=== PATIENT | female | born 1990 | race Caucasian/White ===

== ENCOUNTER 2024-03-27 14:30 | Emergency (ER) | payer MEDICAID, SELFPAY ==
--- NOTE | 2024-03-27 14:33 | ECG_ITS ---
[facility] Test Date: 2024-03-27 Pat Name: PAM VELAZQUEZ Department: Room: - Gender: Female Forensic Dna Analyst: : 1990 Requested By: LEOLA AGUILERA Order Number: [id number] Reading MD: LORRIE GUPTA Measurements Intervals [place] Rate: 100 P: 34 WI: 146 QRS: 9 QRSD: 84 T: 90 QT: 306 QTc: 363 Interpretive Statements 1120 Sinus tachycardia Low voltage across precordium Electronically Signed On 03-27-2024 19:15:22 EDT by LORRIE GUPTA
--- NOTE | 2024-03-27 14:35 | ED.GENADUL1 ---
HPI HPI - General Adult General Chief complaint: Psychiatric Symptoms Stated complaint: PSYCH SYMPTOMS Time Seen by Provider: 03/27/24 14:33 Source: patient and EMR Mode of arrival: ambulance History of Present Illness HPI narrative: Patient is a 33-year-old female who presents to the emergency department for psych evaluation from a local half-way where she is rehabbing after a left leg surgery 1 month ago. Patient has a history of bipolar depression. Staff reported that the patient was agitated, cussing and yelling at staff. She apparently punched herself in the head and in the leg, and when staff questioned her, she stated that she was in a lot of pain. She had surgery for reconstruction to her left knee 1 month ago in [place], she is no longer receiving Percocet and was told she could not have any more Percocet by the physician at the half-way. On arrival to the ER, patient is tearful but cooperative and answers all questions. She denies suicidal or homicidal ideation. She states she has a history of cutting in the past. No recent suicide attempt or overdose. She has no other focal medical complaints or major medical problems other than asthma. She states she does not have anything to take when her anxiety gets bad. Related Data Previous Rx's ?Medication ?Instructions ?Recorded ciprofloxacin HCl 500 mg tablet 500 mg PO BID #6 tabs 03/27/24 (Cipro) Allergies Allergy/AdvReac Type Severity Reaction Status Date / Time amoxicillin Allergy rash Verified 03/27/24 14:35 clindamycin Allergy Rash Verified 03/27/24 14:35 Penicillins Allergy Rash Verified 03/27/24 14:35 vancomycin Allergy Rash Verified 03/27/24 14:35 Opioid HPI Opioid Management Most Recent Opioid Data: Ur Phencyclidine Scrn Negative (NEGATIVE) 03/27/24 14:40 Review of Systems ROS Constitutional Denies: fever or chills Ears, nose, mouth, and throat Denies: throat pain or nasal congestion Cardiovascular Denies: chest pain Respiratory Denies: shortness of breath or cough Gastrointestinal Denies: nausea or vomiting Musculoskeletal Reports: extremity pain; Denies: back pain or neck pain Integumentary/Breast Denies: rash Neurological Denies: headache, numbness in extremities or weakness in extremities Endocrine Denies: excessive urination Hematologic/Lymphatic Denies: easy bruising or easy bleeding Exam Narrative Exam Narrative: Gen.: Awake, alert, in no distress Head: Normocephalic, atraumatic ENT: Moist mucous membranes Respiratory: No respiratory distress Extremities: Moves extremities equally, no injuries noted; well healed surgical incision to the left leg Psych: Normal mood and affect Neuro: No focal neuro deficit Skin: Warm, dry, intact Constitutional Vital Signs, click to edit/add: Last Vital Signs Temp 98.6 F 03/27/24 14:38 Pulse 98 H 03/27/24 15:28 Resp 18 03/27/24 14:38 BP 145/91 H 03/27/24 14:38 Pulse Ox 98 03/27/24 14:38 O2 Del Method Room Air 03/27/24 14:38 Course Vital Signs Vital signs: Vital Signs Temperature 98.6 F 03/27/24 14:38 Pulse Rate 117 H 03/27/24 14:38 Respiratory Rate 18 03/27/24 14:38 Blood Pressure 145/91 H 03/27/24 14:38 Pulse Oximetry 98 03/27/24 14:38 Oxygen Delivery Method Room Air 03/27/24 14:38 Temperature 98.6 F 03/27/24 14:38 Pulse Rate 98 H 03/27/24 15:28 Respiratory Rate 18 03/27/24 14:38 Blood Pressure 145/91 H 03/27/24 14:38 Pulse Oximetry 98 03/27/24 14:38 Oxygen Delivery Method Room Air 03/27/24 14:38 Medical Decision Making MDM Narrative Medical decision making narrative: Patient is calm, cooperative in the ER. She was given low-dose Ativan for her anxiety on arrival and she is relaxed with stable vital signs in the ER. Laboratory studies reviewed and noted, she is a contaminated urine specimen will be placed on Cipro for 3 days, she was medically clear for psychiatric evaluation and was safety planned by violence counseling services. She has no suicidal, homicidal ideation in the ER. She is not agitated or combative. The patient did request to have her boyfriend drive her back to [facility], I discussed this with the facility and they stated that the patient's boyfriend cannot drive her back because he has limited visitation and the patient's guardian has instructed them not to let her have any extra contact. The patient's boyfriend does not have a restraining order. The patient is not under a pink slip hold or psychiatric hold at this time. She is alert and oriented, cooperative with staff. We contacted the patient's guardian who will apparently come pick the patient up and take her back to her facility. SUPERVISED APC VISIT, PHYSICIAN ATTESTATION: Based on the medical record the care appears appropriate. ? Medical Records Medical records reviewed: Yes I reviewed the patient's medical records Lab Data Lab results reviewed: Yes I reviewed the patient's lab results Labs: Lab Results 03/27/24 03/27/24 Range/Units 14:40 14:42 WBC 12.1 H (4.0-11.0) 10^3/uL RBC 5.43 H (4.20-5.40) 10^6/uL Hgb 14.0 (12.0-16.0) g/dL Hct 44.1 (36.0-48.0) % MCV 81.2 (81.0-99.0) fL MCH 25.8 L (26.7-34.0) pg MCHC 31.7 (29.9-35.2) g/dL RDW 15.3 H (11.0-15.0) % Plt Count 340 (150-450) 10^3/uL MPV 9.4 L (9.5-13.5) fL Neut % (Auto) 75.8 H (43.0-75.0) % Lymph % (Auto) 13.7 L (20.5-60.0) % [place]irie % (Auto) 5.6 (1.7-12.0) % Eos % (Auto) 4.0 (0.9-7.0) % Baso % (Auto) 0.7 (0.2-2.0) % Neut # (Auto) 9.2 H (1.4-6.5) 10^3/uL Lymph # (Auto) 1.7 (1.2-3.8) 10^3/uL [place] # (Auto) 0.7 (0.3-0.8) 10^3/uL Eos # (Auto) 0.5 (0.0-0.7) 10^3/uL Baso # (Auto) 0.1 (0.0-0.1) 10^3/uL Abs Immat Gran (auto) 0.02 (0.00-0.03) 10^3/uL Imm/Tot Granulo (auto) 0.2 (0.0-0.5) % Sodium 136 (136-145) mmol/L Potassium 4.1 (3.5-5.1) mmol/L Chloride 100 (98-107) mmol/L Carbon Dioxide 30.6 (21.0-32.0) mmol/L Anion Gap 9.5 BUN 10.0 (7.0-18.0) mg/dL Creatinine 0.84 (0.55-1.02) mg/dL Est GFR ( Amer) >60 (>=60) Est GFR (Non-Af Amer) >60 (>=60) BUN/Creatinine Ratio 11.9 Glucose 113 H (74-106) mg/dL Calcium 9.2 (8.5-10.1) mg/dL Total Bilirubin 0.6 (0.2-1.0) mg/dL AST 32 (15-37) U/L ALT 56 (14-59) U/L Alkaline Phosphatase 159 H (46-116) U/L Total Protein 7.5 (6.4-8.2) g/dL Albumin 3.5 (3.4-5.0) g/dL Globulin 4.0 g/dL Albumin/Globulin Ratio 0.9 Serum HCG, Qual Negative (NEGATIVE) Urine Color Lt. yellow (YELLOW) Urine Clarity Clear (CLEAR) Urine pH 6.0 (5.0-9.0) Ur Specific [place] 1.010 (1.005-1.025) Urine Protein Negative (NEG/TRACE) mg/dL Urine Glucose (UA) Negative (NEGATIVE) mg/dL Urine Ketones Negative (NEGATIVE) mg/dL Urine Occult Blood Trace-i (NEGATIVE) Urine Nitrite Negative (NEGATIVE) Urine Bilirubin Negative (NEGATIVE) Urine Urobilinogen 0.2 (0.2-1.0) EU/dL Ur Leukocyte Esterase Small A (NEGATIVE) Urine RBC 0-2 (0-2) #/HPF Urine WBC 5-10 A (NONE SEEN) #/HPF Ur Squamous Epith Cells Many A (NONE/RARE) #/LPF Urine Crystals None seen (None Seen) #/HPF Urine Bacteria Trace A (NONE SEEN) #/HPF Urine Casts None seen (NONE SEEN) #/LPF Urine Mucus None seen (NONE SEEN) Ur Culture Indicated? Yes Salicylates <2.8 (<=19.9) mg/dL Urine Opiates Screen Negative (NEGATIVE) Ur Buprenorphine Scrn Negative (NEGATIVE) Ur Oxycodone Screen Negative (NEGATIVE) Urine Methadone Screen Negative (NEGATIVE) Acetaminophen <2.0 L (10.0-30.0) ug/mL Ur Barbiturates Screen Negative (NEGATIVE) U Tricyclic Antidepress Negative (NEGATIVE) Ur Phencyclidine Scrn Negative (NEGATIVE) Ur Amphetamines Screen Negative (NEGATIVE) U Methamphetamines Scrn Negative (NEGATIVE) U Benzodiazepines Scrn Negative (NEGATIVE) Urine Cocaine Screen Negative (NEGATIVE) U Cannabinoids Screen Negative (NEGATIVE) Ethanol Quant <3 mg/dL ECG Data Attestation: I personally reviewed and interpreted this ECG as follows: (Sinus tachycardia at a rate of 100, no acute ST elevation or ectopy. EKG reviewed by attending physician) Discharge Plan Discharge Stand Alone Forms: Work/School Release, Portal Instructions Chief Complaint: Psychiatric Symptoms Clinical Impression: Behavior disturbance, UTI (urinary tract infection) Patient Disposition: Home, Self-Care Time of Disposition Decision: 16:06 Condition: Good Prescriptions / Home Meds: New ciprofloxacin HCl [Cipro] 500 mg tablet 500 mg PO BID Qty: 6 0RF Print Language: Kazakh Instructions: Urinary Tract Infection in Women (ED) Referrals: LEOLA AGUILERA [Primary Care Provider] - 1 week
[2024-03-27 14:38] VITALS: BP 145/91; PULSE 117; TEMP 37; O2SAT 98; BMI 36.5
[2024-03-27] MEDS: LORAZEPAM 0.5 MG TABLET PO (14:45)
[2024-03-27 14:53] LABS: Basophils Absolute Auto 0.1 10^3/uL (0.0-0.1); Basophils Percent Auto 0.7 % (0.2-2.0); Eosinophils Absolute Auto 0.5 10^3/uL (0.0-0.7); Hematocrit 44.1 % (36.0-48.0); Immature Granulocytes Abs Auto 0.02 10^3/uL (0.00-0.03); Immature Granulocytes Pct Auto 0.2 % (0.0-0.5); Lymphocytes Absolute Auto 1.7 10^3/uL (1.2-3.8); Lymphocytes Percent Auto 13.7 % (20.5-60.0); Mean Corpuscular HGB Conc 31.7 g/dL (29.9-35.2); Mean Corpuscular Hemoglobin 25.8 pg (26.7-34.0); Mean Corpuscular Volume 81.2 fL (81.0-99.0); Mean Platelet Volume 9.4 fL (9.5-13.5); Monocytes Absolute Auto 0.7 10^3/uL (0.3-0.8); Monocytes Percent Auto 5.6 % (1.7-12.0); Neutrophils Absolute Auto 9.2 10^3/uL (1.4-6.5); Neutrophils Percent Auto 75.8 % (43.0-75.0); Platelet Count 340 10^3/uL (150-450); Red Blood Count 5.43 10^6/uL (4.20-5.40); Red Cell Distribution Width 15.3 % (11.0-15.0); White Blood Count 12.1 10^3/uL (4.0-11.0)
[2024-03-27 14:57] LABS: Bilirubin Urine NEGATIVE (NEGATIVE); Blood Urine TRACE-I (NEGATIVE); Clarity Urine CLEAR (CLEAR); Color Urine LT. YELLOW (YELLOW); Glucose Urine UA NEGATIVE (NEGATIVE); Ketones Urine NEGATIVE (NEGATIVE); Leukocyte Esterase Urine SMALL (NEGATIVE); Nitrite Urine NEGATIVE (NEGATIVE); Protein Urine NEGATIVE (NEG/TRACE); Urobilinogen Urine 0.2 EU/dL (0.2-1.0)
[2024-03-27 14:58] LABS: Urine Microscopic Indicated YES
[2024-03-27 15:06] LABS: Amphetamine Screen Urine NEGATIVE (NEGATIVE); Barbiturates Screen Urine NEGATIVE (NEGATIVE); Benzodiazepines Screen Urine NEGATIVE (NEGATIVE); Buprenorphine Screen Urine NEGATIVE (NEGATIVE); Cannabinoid Screen Urine NEGATIVE (NEGATIVE); Cocaine Screen Urine NEGATIVE (NEGATIVE); Methadone Screen Urine NEGATIVE (NEGATIVE); Methamphetamines Screen Urine NEGATIVE (NEGATIVE); Opiate Screen Urine NEGATIVE (NEGATIVE); Oxycodone Screen Urine NEGATIVE (NEGATIVE); Phencyclidine Screen Urine NEGATIVE (NEGATIVE); Tricyclic Antidepressant Urine NEGATIVE (NEGATIVE)
[2024-03-27 15:08] LABS: Alanine Aminotransferase 56 U/L (14-59); Albumin Globulin Ratio 0.9; Albumin Level 3.5 g/dL (3.4-5.0); Alkaline Phosphatase 159 U/L (46-116); Anion Gap 9.5; Aspartate Amino Transferase 32 U/L (15-37); BUN Creatinine Ratio 11.9; Bilirubin Total 0.6 mg/dL (0.2-1.0); Calcium 9.2 mg/dL (8.5-10.1); Carbon Dioxide 30.6 mmol/L (21.0-32.0); Chloride 100 mmol/L (98-107); Estimated GFR (African America >60 (>=60); Estimated GFR (Non-African Ame >60 (>=60); Glucose 113 mg/dL (74-106); Potassium 4.1 mmol/L (3.5-5.1); Salicylate <2.8 mg/dL (<=19.9); Sodium 136 mmol/L (136-145); Total Protein 7.5 g/dL (6.4-8.2)
[2024-03-27 15:09] LABS: Acetaminophen <2.0 ug/mL (10.0-30.0)
--- NOTE | 2024-03-27 15:09 | SWNOTE1 ---
JULIO CESAR received a call from ED and pt came in from [facility] and was having behaviors and agitation due to getting a new roommate and not getting her percocet. [facility] wanted pt to have a psych eval, but [facility] was not going to do this unless we have safety concerns. SW to reach out to [place]. JULIO CESAR called and spoke with Sil at [facility]. She is aware of pt, but did not know she went to hospital. She voiced pt has been at [facility] for 2 years and she is fpc there. She stated she has had her own room for awhile and is likely agitated since she is getting a roommate now. JULIO CESAR did make Sil aware that pt will likely be dc from the ED and return to [facility]. JULIO CESAR to have our nurse call and speak to the nurse at [facility]. JULIO CESAR called and updated nurse down in ED. Nurse voiced that [facility] is going to complete a safety plan with patient.
[2024-03-27 15:10] LABS: Ethanol <3 mg/dL
[2024-03-27 15:14] LABS: HCG Qualitative NEGATIVE (NEGATIVE); Internal Control Within Normal Limits
[2024-03-27 15:20] LABS: Squamous Epithelial Cell Urine MANY #/LPF (NONE/RARE)
[2024-03-27 15:21] LABS: RBC Urine 0-2 #/HPF (0-2)
[2024-03-27 15:22] LABS: Bacteria Urine TRACE #/HPF (NONE SEEN); Cast Seen? NONE SEEN #/LPF (NONE SEEN); Crystals Seen? None Seen #/HPF (None Seen); Mucus Urine NONE SEEN (NONE SEEN)
[2024-03-27 15:23] LABS: Urine Culture Indicated YES
[2024-03-27 15:28] VITALS: PULSE 98
== END 2024-03-27 16:34 | disposition home or self-care (01) ==
PROVIDERS: Physician Assistant; Emergency Provider Emergency Medicine; PCP Family Medicine
DX: N39.0 Urinary tract infection, site not specified (principal); F31.9 Bipolar disorder, unspecified; Z91.52 Personal history of nonsuicidal self-harm; F91.8 Other conduct disorders
CPT/HCPCS: 36415; 80053; 80179; 80307; 80320; 80329; 81001; 84703; 85025; 87086; 87150; 93005; 99285

== ENCOUNTER 2025-02-05 07:58 | Emergency (ER) | payer MEDICAID, SELFPAY ==
[2025-02-05] VITALS (24 sets, daily range): BP systolic 102–133; BP diastolic 38–85; PULSE 68–86; TEMP 37.2; O2SAT 93–99; BMI 45.8
--- OUTSIDE RECORDS SUMMARY | 2025-02-05 08:09 | XMS_ITS | Encounter Summary ---
Author Organization Address [address] [place] [address] Care Team Providers Care Chaser Tar Name Role Phone (Historcal), No Pcp Primary Care Provider César do Source Comments In the event this information is protected by the Federal Confidentiality of Alcohol and Drug AbusePatient Records regulations: The Federal rules restrict any use of the information to criminally investigate or prosecute any alcohol or drug abuse patient. Encounter Details Date Type Department Care Team (Late st Contact Info) Description 09/05/2024 Patient Msg Neurology [address] [phone] Provider, Wes [facility] Social History Tobacco Use Types Packs/Day Years Used Date Smoking Tobacco: Never Smokeless Tobacco: Never Comments:2nd hand exposure Alcohol Use Standard Drinks/Week Comments Never 0 (1 standard drink = 0.6 oz pur e alcohol) [facility] Utilities Answer Date Recorded In the past 12 months has e electric, gas, oil, or water company threatened to shut off services in your home? No 12/05/2023 PHQ-2 Answer Date Recorded PHQ-2 score 2 08/20/2024 Hunger Vital Sign Answer Date Recorded Within the past 12 months, y ou worried that your food would run out before you got the money to buy more. Never true 12/05/19 24 Within the past 12 months, t he food you bought just didn't last and you didn't have money to get more. Never true 12/05/2023 PRAPARE - Transportation Answer Date Re corded In the past 12 months, has l ack of transportation kept you from medical appointments or from getting medications? No 02/2024 In the past 12 months, has l ack of transportation kept you from meetings, work, or from getting things needed for daily living? No 12/05/2023 Housing Stability Vital Sign Answer Denys e Recorded In the last 12 months, was t here a time when you were not able to pay the mortgage or rent on time? No 12/05/2023 Number of Places Lived in the Last Year Not on f ile 12/05/2023 In the last 12 months, was t here a time when you did not have a steady place to sleep or slept in a snf (including now)? No 12/05/2023 Area Deprivation Index Answer Date Gonzales rded National Score (1-100), lower number is lower ri sk 89 11/01/2023 State Score (1-10), lower number is lower risk 8 11/01/2023 Data from: https://www.neighborhoodatlas.medicine.[facility].edu/. Last address used for calculation [address] 11/01/2023 Comments No Sex and Gender Information Value Date Recorded Sex Assigned at Female 08/22/2024 10:44 AM EST Legal Sex Female 10:36 AM EDT Gender Identity Female 08/22/2024 10:44 AM EST Sexual Orientation Not on file documented as of this encounter Functional Status * Are you deaf or do you have serious difficulty hearing? Answer Date of Assessment Author No 12/06/2023 11:24 AM Maty Reyes RN * Are you blind or do you have serious difficulty seeing, even when wearing glasses? Answer Date of Assessment Author No 12/06/2023 11:24 AM Maty Reyes RN * Do you have serious difficulty walking or climbing stairs? Answer Date of Assessment Author Yes 12/06/2023 11:24 AM Maty Reyes, WU * Do you have difficulty dressing or bathing? Answer Date of Assessment Author No 12/06/2023 11:24 AM Maty Reyes RN * Because of a physical, mental, or emotional condition, do you have difficulty doing errands alone such as visiting a doctor's office or shopping? Answer Date of Assessment Author No 12/06/2023 11:24 AM Maty Reyes RN documented as of this encounter Mental Status * Because of a physical, mental, or emotional condition, do you have serious difficulty concentrating, remembering, or making decisions? Answer Entry Date Author No 12/06/2023 11:24 AM Maty Reyes RN documented in this encounter Plan of Treatment Upcoming Encounters Date Type Department Care Team (Late st Contact Info) Description 06/19/2025 8:30 AM EST Office Visit [facility] [address] [address] [place] [address] Shantell Vinson [facility] [address] [place] [address] EDS 06/19/2025 9:00 AM EST Office Visit [facility] [address] [place] [address] Keara Hernandez MD [address] [place] [address] EDS documented as of this encounter Visit Diagnoses Not on filedocumented in this encounter Care Teams Chaser Tar Relationship Specialty Start Date End Date (Historcal), No Pcp PCP - General 01/20/15 documented as of this encounter
--- OUTSIDE RECORDS SUMMARY | 2025-02-05 08:09 | XMS_ITS | Encounter Summary ---
Author Organization [facility] Address [address] [place] [id number] Care Team Providers Care Senior Compliance Officer Name Role Phone (Historcal), No Pcp Primary Care Provider César do Source Comments In the event this information is protected by the Federal Confidentiality of Alcohol and Drug AbusePatient Records regulations: The Federal rules restrict any use of the information to criminally investigate or prosecute any alcohol or drug abuse patient.[facility] Encounter Details Date Type Department Care Team (Late st Contact Info) Description 10/03/2023 Patient Msg [facility] [address] [place] [id number] Provider, [facility] Appointment Reminderand Bowel Prep Instructions Social History Tobacco Use Types Packs/Day Years Used Date Smoking Tobacco: Never Smokeless Tobacco: Never Comments:2nd hand exposure Alcohol Use Standard Drinks/Week Comments Never 0 (1 standard drink = 0.6 oz pur e alcohol) PHQ-2 Answer Date Recorded PHQ-2 score 2 10/04/2023 Area Deprivation Index Answer Date Gonzales rded National Score (1-100), lower number is lower ri sk 89 06/15/2023 State Score (1-10), lower number is lower risk 8 06/15/2023 Data from: https://www.neigh borhoodatlas.medicine.[facility].edu/. Last address used for calculation [address] [place] [address] 06/15/2023 Comments Unknown Sex and Gender Information Value Date Recorded Sex Assigned at Female 08/22/2024 10:44 AM EST Legal Sex Female 10:36 AM EDT Gender Identity Female 08/22/2024 10:44 AM EST Sexual Orientation Not on file documented as of this encounter Plan of Treatment Upcoming Encounters Date Type Department Care Team (Late st Contact Info) Description 06/19/2025 8:30 AM EST Office Visit [facility] [place] [place] [address] [place] [address] Shantell Vinson [facility] [address] [phone] EDS 06/19/2025 9:00 AM EST Office Visit [facility] [place] [address] [place] [address] Keara Hernandez MD [address] [place] [address] EDS documented as of this encounter Visit Diagnoses Not on filedocumented in this encounter Care Teams Senior Compliance Officer Relationship Specialty Start Date End Date (Historcal), No Pcp PCP - General 01/20/15 documented as of this encounter
--- OUTSIDE RECORDS SUMMARY | 2025-02-05 08:09 | XMS_ITS | Clinical Summary ---
Author Organization [facility] Address [address] [place] [id number] Care Team Providers Care Salesperson Stereo Equipment Name Role Phone (Historcal), No Pcp Primary Care Provider Unavai lable Allergies Active Allergy Reactions Criticality Noted Date Comments Amoxicillin Rash 09/20/2023 Azithromycin Rash,Swelling Medium 04/01/2017 Clindamycin Rash 09/20/2023 Meclofenamate Sodium Rash Low 04/16/2020 Penicillins Rash 06/29/2023 Vancomycin Rash 06/29/2023 Medications ARIPiprazole (ABILIFY) 10 mg tablet Take 1 tablet by mouth once daily. 3 Active albuterol sulfate 90 mcg/actuation aebs Inhale 1 Puff as instructed once daily as needed for wheezing/shortne ss of breath. 3 Active cloNIDine HCl (CATAPRES) 0.1 mg tablet Take 1 tablet by mouth two times a day. 3 Active Additional Information Patient taking differently: 0.2 mgORAL 2 TIMES DAILY, Reason: Dosage Adjustment, Reported on 11/13/2024 ferrous sulfate (IRON) 325 mg (65 mg iron) tablet Take 1 tablet by mouth once daily. 3 Active venlafaxine XR (EFFEXOR XR) 225 mg tablet Take 1 tablet by mouth once daily. 3 Active hydrOXYzine HCl (ATARAX) 25 mg tablet Take 1 tablet by mouth three times a day as needed. 3 Active melatonin 10 mg tab Take 1 tablet by mouth daily at bedtime. 3 Active buPROPion SR (WELLBUTRIN SR) 100 mg 12 hr tablet Take 1 tablet by mouth two times a day. 3 Active montelukast (SINGULAIR) 10 mg tablet Take 1 tablet by mouth daily at bedtime. 3 Active ubrogepant (UBRELVY) 100 mg tablet Take 1 tablet by mouth as needed. 3 Active acetaminophen (TYLENOL) 325 mg tablet Take 2 tablets every 6 hours by oral route. Active Cholecalciferol , Vitamin D3, 50 mcg (2,000 unit) cap Daily [address] (PROTONIX) 40 mg tablet Take 1 tablet by mouth two times a day before meals at 6 am and 4 pm. 60 tablet 4 Active ARIPiprazole (ABILIFY) 2 mg tablet Take 2 mg by mouth once daily. Active traZODone (DESYREL) 150 mg tablet Take 150 mg by mouth daily at bedtime. 1/2 tab at hs Active sirolimus (RAPAMUNE) 1 mg tablet Take 1 tablet by mouth once daily. 90 tablet 3 4 06/12/20 25 Active ondansetron HCl (ZOFRAN ORAL) Take by mouth. 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 12/04/2023 Major depressive disorder in partial remission 0 12/04/2023 Intractable migraine 12/04/2023 Bipolar 1 disorder 12/04/2023 ADHD 12/04/2023 Mild intermittent asthma without complication Chronic pain of left knee 12/04/2023 Gastric polyp 12/04/2023 S/P endoscopy 12/04/2023 Class 3 severe obesity due t o excess calories without serious comorbidity with body mass index (BMI) of 45.0 to 49.9 in adult 12/04/2023 Encounters Date Type Department Care Team Description 11/19/2024 Patient Msg Neurology [address] [place] [address] Provider, [facility] Know Your Triggers, Own Your Day: Taking Control of Migraine 11/13/2024 8:45 AM EDT Office Visit Neurology [address] [place] [address] Will Downey, CERTIFIED HYPERBARIC TECHNOLOGIST.REVERBERATORY SKIMMER Intractable chronic migraine without aura and without status migrainosus (Primary Dx) 11/11/2024 Travel 11/07/2024 Patient Msg [facility] [address] [phone] Provider, Wes GENETICS from Last 3 Months Immunizations Immunization Administration Dates Next Due influenza (IIV4) vaccine, ag e 6 mo - 64 yr, quadrivalent, PF (AFLURIA, FLUARIX, FLULAVAL, FLUZONE) 05/18/2020,08/23/2016 Family History Medical History Relation Comments Lung Cancer Maternal Grandfather +TOB Headache Mother Autism Son Aneurysm No Family History Brain Cancer No Family History Relation Status Comments Father Alive Maternal Grandfather Maternal Grandmother Alive Mother Alive Paternal Grandmother Alive Son Alive Social History Tobacco Use Types Packs/Day Years Used Date Smoking Tobacco: Never Smokeless Tobacco: Never Tobacco Cessation:Counseling Given: Not Answered Comments:2nd hand exposure Alcohol Use Standard Drinks/Week Comments Never 0 (1 standard drink = 0.6 oz pur e alcohol) [facility] Utilities Answer Date Recorded In the past 12 months has th e electric, gas, oil, or water company threatened to shut off services in your home? No 12/05/2023 PHQ-2 Answer Date Recorded PHQ-2 score 1 11/12/2024 Hunger Vital Sign Answer Date Recorded Within [...] place to sleep or slept in a fdc (including now)? No 12/05/2023 Area Deprivation Index Answer Date Gonzales rded National Score (1-100), lower number is lower ri sk 89 11/01/2023 State Score (1-10), lower number is lower risk 8 11/01/2023 Data from: https://www.neighborhoodatlas.medicine.[facility].edu/. Last address used for calculation [address] 11/01/2023 Comments No Sex and Gender Information Value Date Recorded Sex Assigned at Female 08/22/2024 10:44 AM EST Legal Sex Female 10:36 AM EDT Gender Identity Female 08/22/2024 10:44 AM EST Sexual Orientation Not on file Last Filed Vital Signs Vital Sign Reading Time Taken Comments Blood Pressure 116/46 11/13/2024 9:01 AM EDT Pulse 85 11/13/2024 9:01 AM EDT Temperature 36.8 C (98.2 F) 02/29/2024 10:22 AM EDT Respiratory Rate 18 02/29/2024 10:22 AM EDT Oxygen Saturation 95% 02/29/2024 10:22 AM EDT Inhaled Oxygen Concentration - - Weight 137.1 kg (302 lb 4 oz) 08/22/2024 11:28 A M EST Height 173.8 cm (5' 8.43 ) 02/05/2024 1:17 PM ED T Body Mass Index 45.39 02/05/2024 1:17 PM EDT Plan of Treatment Upcoming Encounters Date Type Department Care Team (Late st Contact Info) Description 06/19/2025 8:30 AM EST Office Visit [facility] [address] [phone] Shantell Vinson, [facility] [address] [phone] EDS 06/19/2025 9:00 AM EST Office Visit [facility] [address] [place] [address] Keara Hernandez MD [address] [place], [place] [phone] EDS Health Maintenance Due Date Last Done Comments Cervical Cancer Screening 2002 Annual PCP Team Chronic Dise ase Visit 2009 Anxiety Screening 2009 HIV Screening 2009 DTaP,Tdap,Td Vaccine (1 - Tdap) 2010 Hepatitis B Vaccine (1 of 3 - 19+ 3-dose series) 2010 Shingrix Vaccine (1 of 2) 2010 Covid-19 Vaccine (6 - 2023-2 5 season) 2024 07/12/2023, 01/10/2023, 03/15/2022, Additional history exists Pneumococcal Vaccine (2 of 2 - PCV) 04/27/2024 04/27/2023 Influenza Vaccine (#1) 2025 , 06/01/2022, 11/16/2021, Additional history exists Hepatitis C Screening Completed 11/11/2020, 021 Insurance MEDICAID [place] Advance Directives * Full Code (Latest Code Status on File) Date Activated Date Inactivated Comments 12/04/2023 8:45 PM 12/06/2023 3:01 PM Question Answer Comments Full Code Order Discussed With: Discussion Not M edically Appropriate Care Teams Salesperson Stereo Equipment Relationship Specialty Start Date End Date (Historcal), No Pcp PCP - General 01/20/15
--- OUTSIDE RECORDS SUMMARY | 2025-02-05 08:09 | XMS_ITS | Encounter Summary ---
Author Organization [employer] Address [id number] [address] [place] [address] Care Team Providers Care Server Manager Name Role Phone Rinku Kennedy DO Primary Care Provider +1 [phone] Encounter Details Date Type Department Care Team (Late st Contact Info) Description 05/07/2023 Orders Only [facility] Internal Medicine - Family Medicine [address] [place] [address] External, Scanning Provider Social History Tobacco Use Types Packs/Day Years Used Date Smoking Tobacco: Never Smokeless Tobacco: Never Alcohol Use Standard Drinks/Week Comments Yes 0 (1 standard drink = 0.6 oz pur e alcohol) once in a while Childcare Answer Date Recorded Childcare Unknown 01/08/2019 Employment Answer Date Recorded Employment Unknown 01/08/2019 Hunger Screening Answer Date Recorded Within the past 12 months we worried whether our food would run out before we got money to buy more. Never True 05/04/2023 Within the past 12 months th e food we bought just didn't last and we didn't have money to get more. Never True 05/04/2023 Purpose - Life Answer Date Recorded Purpose and direction in life Unknown Comments Unknown Sex and Gender Information Value Date Recorded Sex Assigned at Not on file Legal Sex Female 3:47 AM EDT Gender Identity Not on file Sexual Orientation Not on file documented as of this encounter Plan of Treatment Not on file documented as of this encounter Procedures Procedure Name Priority Date/Time Associated Diagnosis Comments HM COLONOSCOPY Routine 05/07/2023 10:51 AM EDT documented in this encounter Results * HM COLONOSCOPY (05/07/2023 10:51 AM EDT) us Scanning Provider External HEALTH MAINTENANCE Fi nal Result MANUALLY TRANSCRIBED RESULTS documented in this encounter Visit Diagnoses Not on filedocumented in this encounter Care Teams Server Manager Relationship Specialty Start Date End Date iRnku Kennedy DO [address] [facility], [place] [address] PCP - General Family Medicine 04/27/24 documented as of this encounter
--- OUTSIDE RECORDS SUMMARY | 2025-02-05 08:09 | XMS_ITS | Encounter Summary ---
Author Organization [facility] Address [address] [place] [address] Care Team Providers Care Cigarette Book Maker Name Role Phone (Historcal), No Pcp Primary Care Provider César do Source Comments In the event this information is protected by the Federal Confidentiality of Alcohol and Drug AbusePatient Records regulations: The Federal rules restrict any use of the information to criminally investigate or prosecute any alcohol or drug abuse patient.[facility] Encounter Details Date Type Department Care Team (Late st Contact Info) Description 09/25/2023 Patient Msg Gastroenterology [address] [phone] Karuna Cash MD [address] [place] [address] biopsies all benign Social History Tobacco Use Types Packs/Day Years Used Date Smoking Tobacco: Never Smokeless Tobacco: Never Comments:2nd hand exposure Alcohol Use Standard Drinks/Week Comments Never 0 (1 standard drink = 0.6 oz pur e alcohol) PHQ-2 Answer Date Recorded PHQ-2 score 2 06/28/2023 Area Deprivation Index Answer Date Gonzales rded National Score (1-100), lower number is lower ri sk 89 06/15/2023 State Score (1-10), lower number is lower risk 8 06/15/2023 Data from: https://www.neigh borhoodatlas.medicine.[facility].edu/. Last address used for calculation [address] 06/15/2023 Comments Unknown Sex and Gender Information Value Date Recorded Sex Assigned at Female 08/22/2024 10:44 AM EST Legal Sex Female 10:36 AM EDT Gender Identity Female 08/22/2024 10:44 AM EST Sexual Orientation Not on file documented as of this encounter Plan of Treatment Upcoming Encounters Date Type Department Care Team (Late st Contact Info) Description 06/19/2025 8:30 AM EST Office Visit [facility] TAWANDA [facility] [address] [phone] Shantell Vinson, PRANAY [address] [phone] EDS 06/19/2025 9:00 AM EST Office Visit [facility] [address] [place] [address] Keara Hernandez MD [address] [phone] EDS documented as of this encounter Visit Diagnoses Not on filedocumented in this encounter Care Teams Cigarette Book Maker Relationship Specialty Start Date End Date (Historcal), No Pcp PCP - General 01/20/15 documented as of this encounter
--- OUTSIDE RECORDS SUMMARY | 2025-02-05 08:09 | XMS_ITS | Encounter Summary ---
Author Organization [facility] Address [address] [place], [place] [id number] Care Team Providers Care Certified Phlebotomy Technician Name Role Phone (Historcal), No Pcp Primary Care Provider César do Source Comments In the event this information is protected by the Federal Confidentiality of Alcohol and Drug AbusePatient Records regulations: The Federal rules restrict any use of the information to criminally investigate or prosecute any alcohol or drug abuse patient.[facility] Encounter Details Date Type Department Care Team (Late st Contact Info) Description 06/05/2024 Get Medical Advice Gastroenterology [address] [phone] Karuna Cash MD [address] [place] [address] New order for medical genetics Social History Tobacco Use Types Packs/Day Years Used Date Smoking Tobacco: Never Smokeless Tobacco: Never Comments:2nd hand exposure Alcohol Use Standard Drinks/Week Comments Never 0 (1 standard drink = 0.6 oz pur e alcohol) [facility] Utilities Answer Date Recorded In the past 12 months has e electric, gas, oil, or water company threatened to shut off services in your home? No 12/05/2023 PHQ-2 Answer Date Recorded PHQ-2 score 2 10/31/2023 Hunger Vital Sign Answer Date Recorded Within [...] place to sleep or slept in a jail (including now)? No 12/05/2023 Area Deprivation Index Answer Date Gonzales rded National Score (1-100), lower number is lower ri sk 89 11/01/2023 State Score (1-10), lower number is lower risk 8 11/01/2023 Data from: https://www.neighborhoodatlas.medicine.[facility].edu/. Last address used for calculation [address] [...] Assessment Author Yes 12/06/2023 11:24 AM Maty Reyes RN * Do you have difficulty dressing or [...] Description 06/19/2025 8:30 AM EST Office Visit [facility] [address] [place] [address] Shantell Vinson, [facility] [address] [place] [address] EDS 06/19/2025 9:00 AM EST Office Visit [facility] [address] [place] [address] Keara Hernandez MD [address] [place] [address] EDS documented as of this encounter Visit Diagnoses Not on filedocumented in this encounter Care Teams Certified Phlebotomy Technician Relationship Specialty Start Date End Date (Historcal), No Pcp PCP - General 01/20/15 documented as of this encounter
--- OUTSIDE RECORDS SUMMARY | 2025-02-05 08:09 | XMS_ITS | Encounter Summary ---
Author Organization [facility] Address [address] [place] [address] Care Team Providers Care Adult Probation Officer Name Role Phone (Historcal), No Pcp Primary Care Provider César do Source Comments In the event this information is protected by the Federal Confidentiality of Alcohol and Drug AbusePatient Records regulations: The Federal rules restrict any use of the information to criminally investigate or prosecute any alcohol or drug abuse patient.[facility] Encounter Details Date Type Department Care Team (Late st Contact Info) Description 02/26/2024 Patient Msg Neurology [address] [phone] Provider, [facility] Botox Outreach Social History Tobacco Use Types Packs/Day Years Used Date Smoking Tobacco: Never Smokeless Tobacco: Never Comments:2nd hand exposure Alcohol Use Standard Drinks/Week Comments Never 0 (1 standard drink = 0.6 oz pur e alcohol) [facility] Utilities Answer Date Recorded In the past [...] place to sleep or slept in a halfway (including now)? No 12/05/2023 Area Deprivation Index Answer Date Gonzales rded National Score (1-100), lower number is lower ri sk 89 11/01/2023 State Score (1-10), lower number is lower risk 8 11/01/2023 Data from: https://www.neighborhoodatlas.medicine.[facility].edu/. Last address used for calculation [address] [...] Assessment Author No 12/06/2023 11:24 AM Maty Reyes, WU * Because of a physical, mental, or [...] Description 06/19/2025 8:30 AM EST Office Visit [facility] TAWANDA ADAMS [address] [phone] Shantell Vinson [facility] [address] [phone] EDS 06/19/2025 9:00 AM EST Office Visit [facility] AD[facility] [address] [place] [address] Keara Hernandez MD [address] [place] [address] EDS documented as of this encounter Visit Diagnoses Not on filedocumented in this encounter Care Teams Adult Probation Officer Relationship Specialty Start Date End Date (Historcal), No Pcp PCP - General 01/20/15 documented as of this encounter
--- OUTSIDE RECORDS SUMMARY | 2025-02-05 08:09 | XMS_ITS | Encounter Summary ---
Author Organization [employer] Address [id number] [address] [place] [address] Care Team Providers Care Senior Controller Name Role Phone Rinku Kennedy DO Primary Care Provider [phone] [phone] Encounter Details Date Type Department Care Team (Late st Contact Info) Description 05/02/2023 Orders Only [facility] Internal Medicine - Family Medicine [address] [place] [address] External, Scanning Provider Social History Tobacco Use [...] Procedure Name Priority Date/Time Associated Diagnosis Comments POCT , URINE (NUCG) Routine 05/02/2023 3:12 PM EDT documented in this encounter Results * POCT , urine (05/02/2023 3:12 PM EDT) us Scanning Provider External POINT OF CARE TEST OR DERABLES Final Result MANUALLY TRANSCRIBED RESULTS documented in this encounter Visit Diagnoses Not on filedocumented in this encounter Care Teams Senior Controller Relationship Specialty Start Date End Date Rinku Kennedy DO [address], [place] [address] PCP - General Family Medicine 04/27/24 documented as of this encounter
--- OUTSIDE RECORDS SUMMARY | 2025-02-05 08:09 | XMS_ITS | Encounter Summary ---
Author Organization [facility] Address [address] [place], [place] [phone] Care Team Providers Care Domestic Violence Advocate Name Role Phone (Historcal), No Pcp Primary Care Provider César do Source Comments In the event this information is protected by the Federal Confidentiality of Alcohol and Drug AbusePatient Records regulations: The Federal rules restrict any use of the information to criminally investigate or prosecute any alcohol or drug abuse patient.[facility] Encounter Details Date Type Department Care Team (Late st Contact Info) Description 12/03/2023 Get Medical Advice Gastroenterology [address] [phone] [place] [address] [place] [address] [place], [place] [phone] egd procedure Social History Tobacco Use Types Packs/Day Years [...] place to sleep or slept in a residential (including now)? No 12/05/2023 Area Deprivation Index Answer Date Gonzales rded National Score (1-100), lower number is lower ri sk 89 11/01/2023 State Score (1-10), lower number is lower risk 8 11/01/2023 Data from: https://www.neighborhoodatlas.medicine.[facility].edu/. Last address used for calculation [address] 11/01/2023 Comments Unknown Sex and Gender Information Value Date Recorded Sex Assigned at Female 08/22/2024 10:44 AM EST Legal Sex Female 10:36 AM EDT Gender Identity Female 08/22/2024 10:44 AM EST Sexual Orientation Not on file documented as of this encounter Plan of Treatment Upcoming Encounters Date Type Department Care Team (Late st Contact Info) Description 06/19/2025 8:30 AM EST Office Visit [facility] TAWANDA ADAMS [address] [place] [address] Shantell Vinson, [facility] [address] [place] [address] EDS 06/19/2025 9:00 AM EST Office Visit [facility] [address] [place] [address] Keara Hernandez MD [address] [place] [address] EDS documented as of this encounter Visit Diagnoses Not on filedocumented in this encounter Care Teams Domestic Violence Advocate Relationship Specialty Start Date End Date (Historcal), No Pcp PCP - General 01/20/15 documented as of this encounter
--- OUTSIDE RECORDS SUMMARY | 2025-02-05 08:09 | XMS_ITS | Encounter Summary ---
Author Organization [facility] Address [address] [place] [address] Care Team Providers Care Presiding Steward Name Role Phone (Historcal), No Pcp Primary Care Provider César do Source Comments In the event this information is protected by the Federal Confidentiality of Alcohol and Drug AbusePatient Records regulations: The Federal rules restrict any use of the information to criminally investigate or prosecute any alcohol or drug abuse patient.[facility] Encounter Details Date Type Department Care Team (Late st Contact Info) Description 06/19/2024 Get Medical Advice Gastroenterology [address] [phone] Karuna Cash MD [address] [place] [address] New order for genetic testing Social History Tobacco Use Types Packs/Day Years Used Date Smoking Tobacco: Never Smokeless Tobacco: Never Comments:2nd hand exposure Alcohol Use Standard Drinks/Week Comments Never 0 (1 standard drink = 0.6 oz pur e alcohol) [facility] Utilities Answer Date Recorded In the past [...] risk 8 11/01/2023 Data from: https://www.neighborhoodatlas.medicine.[facility].edu/. Last address used for calculation [address] [...] Maty Reyes RN documented in this encounter Miscellaneous Notes * Telephone Encounter - Sandra Dempsey Ma - 06/19/2024 3:50 PM EST Patient called and and needs a new order placed for Genetic Testing / the in the system has . Sandra Dempsey Ma documented in this encounter Plan of Treatment Upcoming Encounters Date Type Department Care Team (Late st Contact Info) Description 06/19/2025 8:30 AM EST Office Visit ASHANTI ADAMS [address] [place] [address] Shantell Vinson, [facility] [address] [place] [address] EDS 06/19/2025 9:00 AM EST Office Visit ASHANTI ADAMS [address] [place] [address] Keara Hernandez MD [address] [place] [address] EDS documented as of this encounter Visit Diagnoses Not on filedocumented in this encounter Care Teams Presiding Steward Relationship Specialty Start Date End Date (Historcal), No Pcp PCP - General 01/20/15 documented as of this encounter
--- OUTSIDE RECORDS SUMMARY | 2025-02-05 08:09 | XMS_ITS | Encounter Summary ---
Author Organization [facility] Address [address] [place] [address] Care Team Providers Care Filling And Stapling Machine Operator Name Role Phone (Historcal), No Pcp Primary Care Provider César do Source Comments In the event this information is protected by the Federal Confidentiality of Alcohol and Drug AbusePatient Records regulations: The Federal rules restrict any use of the information to criminally investigate or prosecute any alcohol or drug abuse patient.[facility] Encounter Details Date Type Department Care Team (Late st Contact Info) Description 11/19/2024 Patient Msg Neurology [address] [phone] Provider, [facility] Know Your Triggers, Own Your Day: Taking Control of Migraine Social History Tobacco Use Types Packs/Day Years Used Date Smoking Tobacco: Never Smokeless Tobacco: Never Comments:2nd hand exposure Alcohol Use Standard Drinks/Week Comments Never 0 (1 standard drink = 0.6 oz pur e alcohol) [facility] Utilities Answer Date Recorded In the [...] place to sleep or slept in a senior living (including now)? No 12/05/2023 Area Deprivation Index Answer Date Gonzales rded National Score (1-100), lower number is lower ri sk 89 11/01/2023 State Score (1-10), lower number is lower risk 8 11/01/2023 Data from: https://www.neighborhoodatlas.medicine.[facility].edu/. Last address used for calculation [address] [...] of Assessment Author No 12/06/2023 11:24 AM EDT Dubon, Maty, RN * Because of a physical, mental, [...] Description 06/19/2025 8:30 AM EST Office Visit [facility] TAWANDA ADAMS [address] [place] [address] Shantell Vinson [facility] [address] [place] [address] EDS 06/19/2025 9:00 AM EST Office Visit [facility] [address] [place] [address] Keara Hernandez MD [address] [place] [address] EDS documented as of this encounter Visit Diagnoses Not on filedocumented in this encounter Care Teams Filling And Stapling Machine Operator Relationship Specialty Start Date End Date (Historcal), No Pcp PCP - General 01/20/15 documented as of this encounter
--- OUTSIDE RECORDS SUMMARY | 2025-02-05 08:09 | XMS_ITS | Encounter Summary ---
Author [id number] [address] [place] [address] Care Team Providers Care Financial Reporting Analyst Name Role Phone Rinku Kennedy DO Primary Care Provider +1 [phone] Encounter Details Date Type Department Care Team (Late st Contact Info) Description 05/26/2022 Orders Only [facility] Internal Medicine - Family Medicine [address] [place] [phone] External, Scanning Provider Social History Tobacco Use Types Packs/Day Years Used Date Smoking Tobacco: Never Smokeless Tobacco: Never Alcohol Use Standard Drinks/Week Comments Yes 0 (1 standard drink = 0.6 oz pur e alcohol) once in a while Childcare Answer Date Recorded Childcare Unknown 01/08/2019 Employment Answer Date Recorded Employment Unknown 01/08/2019 Purpose - Life Answer Date Recorded Purpose and direction in life Unknown Comments Unknown Sex and Gender Information Value Date Recorded Sex Assigned at Not on file Legal Sex Female 3:47 AM EDT Gender Identity Not on file Sexual Orientation Not on file documented as of this encounter Plan of Treatment Pending Results Name Type Priority Associated Diagnoses Date /Time Multiple labs Lab Routine 04/14/2022 documented as of this encounter Visit Diagnoses Not on filedocumented in this encounter Additional Health Concerns Infection Onset Date Last Indicated Resolved Time COVID-19 Rule-Out 06/30/2022 06/30/2022 06/30/2022 2:30 PM EST documented as of this encounter Care Teams Financial Reporting Analyst Relationship Specialty Start Date End Date Rinku Kennedy DO [address] [place] [address] PCP - General Family Medicine 04/27/24 documented as of this encounter
--- OUTSIDE RECORDS SUMMARY | 2025-02-05 08:09 | XMS_ITS | Encounter Summary ---
Author Organization [facility] Address [address] [place] [address] Care Team Providers Care Head Of Conservation Name Role Phone (Historcal), No Pcp Primary Care Provider César do Source Comments In the event this information is protected by the Federal Confidentiality of Alcohol and Drug AbusePatient Records regulations: The Federal rules restrict any use of the information to criminally investigate or prosecute any alcohol or drug abuse patient.[facility] Encounter Details Date Type Department Care Team (Late st Contact Info) Description 07/16/2024 Patient Msg Neurology [address] [phone] Provider, Wes Botox for 2024 Social History Tobacco Use Types Packs/Day Years Used Date Smoking Tobacco: Never Smokeless Tobacco: Never Comments:2nd hand exposure Alcohol Use Standard Drinks/Week Comments Never 0 (1 standard drink = 0.6 oz pur e alcohol) [facility] Utilities Answer Date Recorded In the past [...] place to sleep or slept in a [place] health care facility (including now)? No 12/05/2023 Area Deprivation Index Answer Date Gonzales rded National Score (1-100), lower number is lower ri sk 89 11/01/2023 State Score (1-10), lower number is lower risk 8 11/01/2023 Data from: https://www.neighborhoodatlas.medicine.[facility].edu/. Last address used for calculation [address] [...] 8:30 AM EST Office Visit VICKI ADAMS [address] [address] [phone] Shantell Vinson [place] [address] [phone] EDS 06/19/2025 9:00 AM EST Office Visit [facility]AMS [address] [place] [address] Keara Hernandez MD [address] [place] [address] EDS documented as of this encounter Visit Diagnoses Not on filedocumented in this encounter Care Teams Head Of Conservation Relationship Specialty Start Date End Date (Historcal), No Pcp PCP - General 01/20/15 documented as of this encounter
--- OUTSIDE RECORDS SUMMARY | 2025-02-05 08:09 | XMS_ITS | Encounter Summary ---
Author Organization [facility] Address [address] [place] [address] Care Team Providers Care License Issuer Name Role Phone (Historcal), No Pcp Primary Care Provider César do Source Comments In the event this information is protected by the Federal Confidentiality of Alcohol and Drug AbusePatient Records regulations: The Federal rules restrict any use of the information to criminally investigate or prosecute any alcohol or drug abuse patient.[facility] Encounter Details Date Type Department Care Team (Late st Contact Info) Description 11/07/2024 Patient [facility] [address] [place] [address] Provider, Leslie GENETICS Social History Tobacco Use Types Packs/Day Years Used Date Smoking Tobacco: Never Smokeless Tobacco: Never Comments:2nd hand exposure Alcohol Use Standard Drinks/Week Comments Never 0 (1 standard drink = 0.6 oz pur e alcohol) [facility] Utilities Answer Date Recorded In the past [...] place to sleep or slept in a long term (including now)? No 12/05/2023 Area Deprivation Index Answer Date Gonzales rded National Score (1-100), lower number is lower ri sk 89 11/01/2023 State Score (1-10), lower number is lower risk 8 11/01/2023 Data from: https://www.neighborhoodatlas.medicine.[facility].edu/. Last address used for calculation [address] [...] Description 06/19/2025 8:30 AM EST Office Visit [facility] TAWANDA ADAMS [address] [place] [address] Shantell Vinson [place] [address] [phone] EDS 06/19/2025 9:00 AM EST Office Visit [facility]ICK[facility]AMS [address] [place] [address] Keara Hernandez MD [address] [place] [address] EDS documented as of this encounter Visit Diagnoses Not on filedocumented in this encounter Care Teams License Issuer Relationship Specialty Start Date End Date (Historcal), No Pcp PCP - General 01/20/15 documented as of this encounter
--- OUTSIDE RECORDS SUMMARY | 2025-02-05 08:09 | XMS_ITS | Encounter Summary ---
Author Organization [facility] Address [address] [place], [place] [id number] Care Team Providers Care Treadle Cut Off Saw Operator Name Role Phone (Historcal), No Pcp Primary Care Provider César do Source Comments In the event this information is protected by the Federal Confidentiality of Alcohol and Drug AbusePatient Records regulations: The Federal rules restrict any use of the information to criminally investigate or prosecute any alcohol or drug abuse patient.[facility] Encounter Details Date Type Department Care Team (Late st Contact Info) Description 01/22/2024 Abstract Colorectal Surgery [address] [phone] Emy Matson, Research Coordinator [address] [place] [id number] Social History Tobacco Use Types Packs/Day Years Used Date Smoking Tobacco: Never Smokeless Tobacco: Never Comments:2nd hand exposure Alcohol Use Standard Drinks/Week Comments Never 0 (1 standard drink = 0.6 oz pur e alcohol) [facility] Utilities Answer Date Recorded In [...] place to sleep or slept in a longterm (including now)? No 12/05/2023 Area Deprivation Index Answer Date Gonzales rded National Score (1-100), lower number is lower ri sk 89 11/01/2023 State Score (1-10), lower number is lower risk 8 11/01/2023 Data from: https://www.neighborhoodatlas.medicine.[facility].edu/. Last address used for calculation [address] 11/01/2023 Comments No Sex and Gender [...] Maty Reyes, WU * Do you have serious difficulty walking [...] 8:30 AM EST Office Visit [facility] [address] [facility] [place] [address] Shantell Vinson, [facility] [address] [place] [address] EDS 06/19/2025 9:00 AM EST Office Visit ASHANTI ADAMS [address] [place] [address] Keara Hernandez MD [address] [place] [address] EDS documented as of this encounter Visit Diagnoses Not on filedocumented in this encounter Care Teams Treadle Cut Off Saw Operator Relationship Specialty Start Date End Date (Historcal), No Pcp PCP - General 01/20/15 documented as of this encounter
--- OUTSIDE RECORDS SUMMARY | 2025-02-05 08:09 | XMS_ITS | Encounter Summary ---
Author Organization [facility] Address [address] [place] [address] Care Team Providers Care Meteorologist In Charge Name Role Phone (Historcal), No Pcp Primary Care Provider César do Source Comments In the event this information is protected by the Federal Confidentiality of Alcohol and Drug AbusePatient Records regulations: The Federal rules restrict any use of the information to criminally investigate or prosecute any alcohol or drug abuse patient.[facility] Encounter Details Date Type Department Care Team (Late st Contact Info) Description 12/03/2023 Patient Msg Radiology [address] [place] [address] Provider, Cc Questionnaire Submission Social History Tobacco Use Types Packs/Day Years Used Date Smoking Tobacco: Never Smokeless Tobacco: Never Comments:2nd hand exposure Alcohol Use Standard Drinks/Week Comments Never 0 (1 standard drink = 0.6 oz pur e alcohol) [facility] Utilities Answer Date Recorded In the [...] is lower risk 8 11/01/2023 Data from: https://www.neighborhoodatlas.medicine.[facility].edu/. Last address used for calculation [address] 11/01/2023 Comments Unknown Sex and Gender [...] 8:30 AM EST Office Visit VICKI ADAMS [address] [place] [address] Shantell Vinson, [facility] [address] [place], [place] [phone] EDS 06/19/2025 9:00 AM EST Office Visit ASHANTI ADAMS [address] [place] [address] Keara Hernandez MD [address] [place] [address] EDS documented as of this encounter Visit Diagnoses Not on filedocumented in this encounter Care Teams Meteorologist In Charge Relationship Specialty Start Date End Date (Historcal), No Pcp PCP - General 01/20/15 documented as of this encounter
--- OUTSIDE RECORDS SUMMARY | 2025-02-05 08:09 | XMS_ITS | Encounter Summary ---
Author Organization [facility] Address [address] [place] [address] Care Team Providers Care Baton Twirler Name Role Phone (Historcal), No Pcp Primary Care Provider César do Source Comments In the event this information is protected by the Federal Confidentiality of Alcohol and Drug AbusePatient Records regulations: The Federal rules restrict any use of the information to criminally investigate or prosecute any alcohol or drug abuse patient.[facility] Encounter Details Date Type Department Care Team (Late st Contact Info) Description 11/27/2023 Patient Msg Gastroenterology [address] [phone] Provider, Wes Pre-Procedure Instructions for 12/04/23 EGD Social History Tobacco Use Types Packs/Day Years Used Date Smoking Tobacco: Never Smokeless Tobacco: Never Comments:2nd hand exposure Alcohol Use Standard Drinks/Week Comments Never 0 (1 standard drink = 0.6 oz pur e alcohol) PHQ-2 Answer Date Recorded PHQ-2 score 2 10/31/2023 Area Deprivation Index Answer Date Gonzales rded National Score (1-100), lower number is lower ri sk 89 11/01/2023 State Score (1-10), lower number is lower risk 8 11/01/2023 Data from: https://www.neighborhoodatlas.medicine.[facility].edu/. Last address used for calculation [address] [place] [address] 11/01/2023 Comments Unknown Sex and Gender Information Value Date Recorded Sex Assigned at Female 08/22/2024 10:44 AM EST Legal Sex Female 10:36 AM EDT Gender Identity Female 08/22/2024 10:44 AM EST Sexual Orientation Not on file documented as of this encounter Plan of Treatment Upcoming Encounters Date Type Department Care Team (Late st Contact Info) Description 06/19/2025 8:30 AM EST Office Visit [facility] TAWANDA ADAMS [address] [place] [address] Shantell Vinson LG [address] [place] [address] EDS 06/19/2025 9:00 AM EST Office Visit VICKI ADAMS [address] [place] [address] Keara Hernandez MD [address] [place] [address] EDS documented as of this encounter Visit Diagnoses Not on filedocumented in this encounter Care Teams Baton Twirler Relationship Specialty Start Date End Date (Historcal), No Pcp PCP - General 01/20/15 documented as of this encounter
--- OUTSIDE RECORDS SUMMARY | 2025-02-05 08:09 | XMS_ITS | Encounter Summary ---
Author Organization [facility] Address [address] [place] [address] Care Team Providers Care Ocean Export Account Manager Name Role Phone (Historcal), No Pcp Primary Care Provider César do Source Comments In the event this information is protected by the Federal Confidentiality of Alcohol and Drug AbusePatient Records regulations: The Federal rules restrict any use of the information to criminally investigate or prosecute any alcohol or drug abuse patient.[facility] Encounter Details Date Type Department Care Team (Late st Contact Info) Description 08/29/2024 Patient Msg Neurology [address] [place], [place] [phone] Provider, Ccf schedule injection Social History Tobacco Use Types Packs/Day Years Used Date Smoking Tobacco: Never Smokeless Tobacco: Never Comments:2nd hand exposure Alcohol Use Standard Drinks/Week Comments Never 0 (1 standard drink = 0.6 oz pur e alcohol) [facility] Utilities Answer Date Recorded In [...] place to sleep or slept in a fci (including now)? No 12/05/2023 Area Deprivation Index Answer Date Gonzales rded National Score (1-100), lower number is lower ri sk 89 11/01/2023 State Score (1-10), lower number is lower risk 8 11/01/2023 Data from: https://www.neighborhoodatlas.medicine.[facility].edu/. Last address used for calculation [address] [...] Description 06/19/2025 8:30 AM EST Office Visit [facility] [place] [facility] TAWANDA ADAMS [address] [place] [address] Shantell Vinson [facility] [address] [phone] EDS 06/19/2025 9:00 AM EST Office Visit VICKI ADAMS [address] [place] [address] Keara Hernandez MD [address] [place] [address] EDS documented as of this encounter Visit Diagnoses Not on filedocumented in this encounter Care Teams Ocean Export Account Manager Relationship Specialty Start Date End Date (Historcal), No Pcp PCP - General 01/20/15 documented as of this encounter
--- OUTSIDE RECORDS SUMMARY | 2025-02-05 08:09 | XMS_ITS | Clinical Summary ---
Author Organization [employer] Address [id number] [address] [place] [address] Care Team Providers Care Pediatric Physician Name Role Phone Rinku Kennedy Primary Care Provider Allergies Active Allergy Reactions Criticality Noted Date Comments Azithromycin Swelling Medium 04/01/2017 Clindamycin Rash Low 04/10/2022 Meclofenamate Sodium Rash Low 04/16/2020 Penicillins Hives Low 05/03/2016 Vancomycin Anaphylaxis High 05/08/2018 Medications * This document contains information received from the source organization and may not represent a complete record from that organization. budesonide-formo terol (SYMBICORT) 80-4.5 mcg/actuation inhaler Inhale 2 puffs 2 (two) times a day. Active venlafaxine XR (EFFEXOR-XR) 225 mg tablet extended release 24hr 24 hr tablet Take 1 tablet (225 mg total) by mouth in the morning. Active SUMAtriptan (IMITREX) 50 mg tablet sumatriptan 50 mg tablet Active traZODone (DESYREL) 50 mg tablet Take 1 tablet (50 mg total) by mouth. Active montelukast (SINGULAIR) 10 mg tablet Active loratadine (CLARITIN) 10 mg tablet Active ondansetron (ZOFRAN) 4 mg tablet 2 Active docusate sodium 100 mg capsule Take 1 tablet by mouth in the morning. 2 Active ferrous sulfate 325 (65 FE) mg tablet Take 1 tablet (325 mg total) by mouth in the morning. Active cloNIDine (CATAPRES) 0.2 mg tablet Active cholecalciferol, vitamin D3, 2,000 units tablet Take 1 tablet (2,000 Units total) by mouth in the morning. Active baclofen (LIORESAL) 10 mg tablet 3 (three) times a day. Active albuterol (VENTOLIN HFA) 90 mcg/actuation inhaler Ventolin HFA 90 mcg/actuation aerosol inhaler 2 Active acetaminophen (TYLENOL) 325 mg tablet Take 1 tablet (325 mg total) by mouth in the morning and 1 tablet (325 mg total) at noon and 1 tablet (325 mg total) in the evening and 1 tablet (325 mg total) before bedtime. Active ARIPiprazole (ABILIFY) 10 mg tablet Take 1 tablet (10 mg total) by mouth in the morning. 3 Active triamcinolone (KENALOG) 0.1 % cream Apply 1 Application topically in the morning and 1 Application before bedtime. Active pantoprazole (PROTONIX) 40 mg EC tablet Take 1 tablet (40 mg total) by mouth every morning before breakfast. 3 Active omega 9-sji-hjz-fish oil (FISH OIL) 300 mg (120 mg- 180mg)-1,000 mg capsule capsule Take 1 capsule by mouth in the morning. 3 Active melatonin (CIRCADIN) 5 mg tablet Take 2 tablets (10 mg total) by mouth nightly. Active hydrOXYzine (ATARAX) 25 mg tablet Take 1 tablet (25 mg total) by mouth in the morning and at bedtime. 3 Active AJOVY AUTOINJECTOR 225 mg/1.5 mL Inject 1.5 mL (225 mg total) under the skin every 30 (thirty) days. 3 Active divalproex (DEPAKOTE) 125 mg EC tablet Take 1 tablet (125 mg total) by mouth nightly. Active diphenhydrAMINE (BENADRYL) 25 mg capsule Take 1 capsule (25 mg total) by mouth nightly as needed for sleep. Active buPROPion SR (WELLBUTRIN SR) 100 mg 12 hr tablet Take 1 tablet (100 mg total) by mouth in the morning. 3 Active Active Problems Problem Noted Date Diagnosed Date History of cholecystectomy 01/28/2025 Diarrhea 01/28/2025 Elevated ALT measurement 01/28/2025 Anterolisthesis of cervical spine 10/03/2024 Strain of left shoulder 10/03/2024 Bipolar 2 disorder, major depressive episode Sleep disorder 06/15/2023 Asthma 05/09/2023 Anemia due to acute blood loss 05/09/2023 Insomnia 01/31/2023 Patellar instability of left knee 11/21/2022 Other dysphagia 11/08/2022 Ingrowing nail 08/29/2022 DJD (degenerative joint disease) 08/23/2022 Morbid obesity with BMI of 40.0-44.9, adult 07/31 Personal history of COVID-19 08/11/2022 Maki-Burton tear 08/09/2022 Chronic pain of left knee 07/25/2022 Aftercare following surgery of the musculoskelet al system 06/30/2022 Muscle weakness (generalized) 06/30/2022 Multifactorial gait disorder 06/30/2022 Chondromalacia of right patella 10/26/2020 Breakthrough bleeding 03/15/2020 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 07/07/2019 Daytime hypersomnia 10/08/2018 Juvenile polyposis syndrome 09/30/2018 Severe depressed bipolar I d isorder without psychotic features 05/08/2018 Anxiety 06/16/2017 Mild intermittent asthma 06/16/2017 Mixed bipolar affective disorder, mild Chronic migraine without aur a without status migrainosus, not intractable 02/15/2017 Allergic rhinitis 08/23/2016 Iron deficiency anemia 08/23/2016 Mild persistent asthma without complication 04/30 Resolved Problems Problem Noted Date Diagnosed Date Resolved Date Acute bilateral low back telma n without sciatica 12/25/2023 12/22/2024 Bronchitis 08/19/2023 05/19/2024 Depression with suicidal ideation 08/06/2022 04/27/2023 Other chest pain 06/30/2022 04/06/2023 Infectious joint disease 11/04/202103/2023 Severe recurrent major depre ssion without psychotic features 05/08/2018 04/27/2023 Encounters Date Type Department Care Team Description 01/28/2025 Continuing Care [facility] - Family Medicine [address] [place] [address] Rinku Kennedy DO Mixed hyperlipidemia (Primary Dx); Diarrhea, unspecified type; History of cholecystectomy; Bipolar 2 disorder, major depressive episode ([facility]); Elevated ALT measurement; Morbid obesity with BMI of 40.0-44.9, adult ([facility]) 01/13/2025 9:06 AM EDT - 01/13/2025 11:59 PM EDT Hospital [facility] [address] [facility] [place] [address] Acute pain of right knee Discharge Disposition: Home 01/11/2025 Travel 01/09/2025 Continuing Care [facility] - [facility] [address] [place] [address] Rinku Kennedy DO Thoracic myofascial strain, initial encounter (Primary Dx); Strain of lumbar region, initial encounter; Severe depressed bipolar I disorder without psychotic features ([facility]); Morbid obesity ([facility]) 12/12/2024 Continuing Care [facility] - [facility] [address] [place] [address] Rinku Kennedy DO Chronic migraine without aura without status migrainosus, not intractable (Primary Dx); Chronic pain of left knee; Multifactorial gait disorder 11/07/2024 Continuing Care [facility] - [facility] [address] [place] [place] [address] Lisa Arreguin, SENIOR SOFTWARE ENGINEER ANALYTICS-RERECORDING MIXER Chronic migraine without aura without status migrainosus, not intractable (Primary Dx); Candidiasis of breast from Last 3 Months Immunizations Immunization Administration Dates Next Due COVID-19, mRNA, LNP-S, PF, 1 00mcg/0.5mL Dose 03/15/2022,10/28/2020,09/30/2020 Covid-19, Mrna, Lnp-s, Bival ent, Pf, 30mcg/0.3 ml 01/10/2023 Influenza, Injectable, quadrivalent (PF) 020,08/23/2016 Social History Tobacco Use Types Packs/Day Years Used Date Smoking Tobacco: Never Smokeless Tobacco: Never Tobacco Cessation:Counseling Given: Not Answered Alcohol Use Standard Drinks/Week Comments Yes 0 (1 standard drink = 0.6 oz pur e alcohol) once in a while Childcare Answer Date Recorded Childcare Unknown 01/08/2019 Employment Answer Date Recorded Employment Unknown 01/08/2019 Hunger Screening Answer Date Recorded Within the past 12 months we worried whether our food would run out before we got money to buy more. Never True 04/27/2024 Within the past 12 months th e food we bought just didn't last and we didn't have money to get more. Never True 04/27/2024 Purpose - Life Answer Date Recorded Purpose and direction in life Unknown Comments Unknown Sex and Gender Information Value Date Recorded Sex Assigned at Not on file Legal Sex Female 3:47 AM EDT Gender Identity Not on file Sexual Orientation Not on file Last Filed Vital Signs Vital Sign Reading Time Taken Comments Blood Pressure 115/70 01/09/2025 2:40 PM EDT Pulse 92 01/28/2025 4:55 PM EDT Temperature 36.6 C (97.8 F) 01/09/2025 2:40 PM EDT Respiratory Rate 18 01/09/2025 2:40 PM EDT Oxygen Saturation 95% 01/28/2025 4:55 PM EDT Inhaled Oxygen Concentration - - Weight 145.1 kg (319 lb 12.8 oz) 01/28/2025 4:55 PM EDT Height 172.7 cm (5' 8 ) 04/27/2024 12:0 9 PM EDT Body Mass Index 48.63 04/27/2024 12:09 PM EDT Plan of Treatment Health Maintenance Due Date Last Done Comments Depression Screening 2003 Adult BMI Follow Up Plan 2009 DTaP,Tdap and Td Vaccines (1 - Tdap) 2010 Pap Smear 2012 COVID-19 Vaccine (2023-2 5 season) 2024 01/10/2023, 03/15/2022, 10/28/2020, Additional history exists Tobacco Screening 08/19/2024 08/19/2023 Influenza Vaccine 03/30/2025 05/18/2020, 08/23/2016 Adult BMI Screening 01/09/2026 01/28/2025 Medical Devices Not on file Procedures Procedure Name Priority Date/Time Associated Diagnosis Comments MR KNEE RT WO CONT Routine 01/13/2025 10 :17 AM EDT Acute pain of right knee from Last 3 Months Results * MR knee right without contrast (01/13/2025 10:17 AM EDT) Anatomical Region Laterality Modality MSK, Knee, Lower Extremities, Patella, MSK Cover a Right Magnetic Resonance 01/15/2025 9:45 PM EDT Narrative 01/15/2025 9:53 PM EDT MRI RIGHT KNEE CLINICAL INFORMATION: Knee pain, history of prior surgery COMPARISON: ?None. PROCEDURE: ?Multisequence, multiplanar MR images of the knee were obtained. FINDINGS: MENISCI Medial meniscus: Suspect subtle tearing posterior horn, no parameniscal cyst. Slight meniscal extrusion. Lateral meniscus: Subtle blunting, irregularity body, no parameniscal cyst. LIGAMENTS Cruciate ligaments: No tear. Medial collateral ligament complex: No acute injury. Possible changes proximal fibers appear present, please correlate with surgical history. Lateral collateral ligament complex: No tear. Other: Unremarkable popliteus tendon and IT band. EXTENSOR MECHANISM Extensor mechanism: Lateral patellar subluxation. There is volume loss and irregularity along the medial supporting structures suggesting possible remote injury. No tear or significant tendinosis extensor mechanism. FLUID Fluid: Moderate volume joint fluid with synovial thickening. No significant Galvan's cyst. OSSEOUS and ARTICULAR STRUCTURES Bones: Postsurgical changes tibial tubercle near the patellar tendon insertion, no acute findings in this region. Patellofemoral compartment: Arthritis with large full-thickness defects diffusely patellar cartilage with some remote remodeling of the medial facet surface with some remote appearing osteochondral abnormalities. Medial compartment: Diffuse chondral loss with high-grade near full-thickness to full-thickness defects. Lateral compartment: Chondral loss with superficial fibrillation with some subtle near full-thickness defects as well. Other: No aberrant anterior tibial artery. No enlarged lymph nodes. Visualized nerves are unremarkable. Tricompartmental arthritis. IMPRESSION: 1. Advanced tricompartmental arthritis. Complex joint effusion. 2. Meniscal tearing likely present with the limitations of study. 3. Findings of prior surgical fixation proximal MCL. Suspect findings of remote medial supporting structure injury. Finalized by Seven Osborn MD on 01/15/2025 9:53 PM Procedure Note Seven Osborn MD - 01/15/2025 MRI RIGHT KNEE CLINICAL INFORMATION: Knee pain, history of prior surgery COMPARISON: ?None. PROCEDURE: ?Multisequence, multiplanar MR images of the knee wereobtained. FINDINGS: MENISCI Medial meniscus: Suspect subtle tearing posterior horn, no parameniscalcyst. Slight meniscal extrusion. Lateral meniscus: Subtle blunting, irregularity body, no parameniscalcyst. LIGAMENTS Cruciate ligaments: No tear. Medial collateral ligament complex: No acute injury. Possible changesproximal fibers appear present, please correlate with surgical history. Lateral collateral ligament complex: No tear. Other: Unremarkable popliteus tendon and IT band. EXTENSOR MECHANISM Extensor mechanism: Lateral patellar subluxation. There is volume loss andirregularity along the medial supporting structures suggesting possibleremote injury. No tear or significant tendinosis extensor mechanism. FLUID Fluid: Moderate volume joint fluid with synovial thickening. Nosignificant Galvan's cyst. OSSEOUS and ARTICULAR STRUCTURES Bones: Postsurgical changes tibial tubercle near the patellar tendoninsertion, no acute findings in this region. Patellofemoral compartment: Arthritis with large full-thickness defectsdiffusely patellar cartilage with some remote remodeling of the medialfacet surface with some remote appearing osteochondral abnormalities. Medial compartment: Diffuse chondral loss with high-grade nearfull-thickness to full-thickness defects. Lateral compartment: Chondral loss with superficial fibrillation with somesubtle near full-thickness defects as well. Other: No aberrant anterior tibial artery. No enlarged lymph nodes.Visualized nerves are unremarkable. Tricompartmental arthritis. IMPRESSION: 1. Advanced tricompartmental arthritis. Complex joint effusion. 2. Meniscal tearing likely present with the limitations of study. 3. Findings of prior surgical fixation proximal MCL. Suspect findings ofremote medial supporting structure injury. Finalized by Seven Osborn MD on 01/15/2025 9:53 PM Enzo Griffiths MD [facility] MRI ORDERABLES Final Result from Last 3 Months Insurance MEDICAID [place] Advance Directives * Full Code (Latest Code Status on File) Date Activated Date Inactivated Comments 05/08/2018 12:59 PM 05/13/2018 7:48 PM Care Teams Pediatric Physician Relationship Specialty Start Date End Date Rinku Kennedy DO [address] [facility], [place] [address] PCP - General Family Medicine 04/27/24
--- OUTSIDE RECORDS SUMMARY | 2025-02-05 08:09 | XMS_ITS | Encounter Summary ---
Author Organization [employer] Address [id number] [address] [place] [address] Care Team Providers Care Oracle R12 Developer Name Role Phone Rinku Kennedy DO Primary Care Provider [phone] Encounter Details Date Type Department Care Team (Late st Contact Info) Description 03/28/2024 Orders Only [facility] [address] [place] [address] Ref Prov, [place] [address] Social History Tobacco Use Types Packs/Day Years [...] got money to buy more. Never True 08/19/2023 Within the past 12 months th e food we bought just didn't last and we didn't have money to get more. Never True 08/19/2023 Purpose - Life Answer Date Recorded Purpose [...] Procedure Name Priority Date/Time Associated Diagnosis Comments ECG 12-LEAD Routine 03/27/2024 11:53 AM EDT documented in this encounter Results * ECG 12 lead (03/27/2024 11:53 AM EDT) us Not In System Ref Prov ECG ORDERABLES Final Res ult MANUALLY TRANSCRIBED RESULTS documented in this encounter Visit Diagnoses Not on filedocumented in this encounter Care Teams Oracle R12 Developer Relationship Specialty Start Date End Date Rinku Kennedy DO [address], [place] [address] PCP - General Family Medicine 04/27/24 documented as of this encounter
--- OUTSIDE RECORDS SUMMARY | 2025-02-05 08:09 | XMS_ITS | Encounter Summary ---
Author Organization [facility] Address [address] [place] [address] Care Team Providers Care Senior Design Engineering Specialist Name Role Phone (Historcal), No Pcp Primary Care Provider César do Source Comments In the event this information is protected by the Federal Confidentiality of Alcohol and Drug AbusePatient Records regulations: The Federal rules restrict any use of the information to criminally investigate or prosecute any alcohol or drug abuse patient.[facility] Encounter Details Date Type Department Care Team (Late st Contact Info) Description 09/23/2023 [place] [address] Provider, Ccf MRI Screening Questionnaire Completion Required Social History Tobacco Use Types Packs/Day Years [...] lower risk 8 06/15/2023 Data from: https://www.neigh borhoodatlas.medicine.[facility].edu/. Last address used for calculation Geovany rishabh 06/15/2023 Comments Unknown Sex and Gender Information [...] 8:30 AM EST Office Visit ASHANTI ADAMS [address] [place] [address] Shantell Vinson LGC [address] [place] [phone] EDS 06/19/2025 9:00 AM EST Office Visit [facility]ICKI ADAMS [address] [facility] [place] [place] [address] Keara Hernandez MD [address] [place] [address] EDS documented as of this encounter Visit Diagnoses Not on filedocumented in this encounter Care Teams Senior Design Engineering Specialist Relationship Specialty Start Date End Date (Historcal), No Pcp PCP - General 01/20/15 documented as of this encounter
--- OUTSIDE RECORDS SUMMARY | 2025-02-05 08:09 | XMS_ITS | Encounter Summary ---
Author Organization [employer] tem Address [facility]-[id number] [address] [place] [address] Care Team Providers Care Delinquency Prevention Officer Name Role Phone Rinku Kennedy DO Primary Care Provider [phone] Encounter Details Date Type Department Care Team (Late st Contact Info) Description 01/28/2025 Continuing Care [facility] Internal Medicine - Family Medicine [address] [place] [phone] Rinku Kennedy DO [address], [facility] [place] [address] Mixed hyperlipidemia (Primary Dx); Diarrhea, unspecified type; History of cholecystectomy; Bipolar 2 disorder, major depressive episode ([facility]); Elevated ALT measurement; Morbid obesity with BMI of 40.0-44.9, adult ([facility]) Social History Tobacco Use Types Packs/Day Years [...] Recorded Purpose and direction in life Unknown 02 /05/2021 Comments Unknown Sex and Gender Information Value Date Recorded Sex Assigned at Not on file Legal Sex Female 3:47 AM EDT Gender Identity Not on file Sexual Orientation Not on file documented as of this encounter Last Filed Vital Signs Vital Sign Reading Time Taken Comments Blood Pressure - - Pulse 92 01/28/2025 4:55 PM EDT Temperature - - Respiratory Rate - - Oxygen Saturation 95% 01/28/2025 4:55 PM EDT Inhaled Oxygen Concentration - - Weight 145.1 kg (319 lb 12.8 oz) 01/28/2025 4:55 PM EDT Height - - Body Mass Index 48.63 04/27/2024 12:09 PM EDT documented in this encounter Progress Notes * Rinku Kennedy, DO - 01/28/2025 4:55 PM EDT Patient Name: Tiffanie Rollins Date of : 1990 Date of Service: 01/28/2025 Facility: [facility] Type of Visit: Acute Visit Subjective Tiffanie Rollins is a 34 y.o. female seen today at senior living facility for problem visit and regular. Nurses report abnormal labs for my review. They were ordered by [facility]. Start. Your triglycerides were very high 506. She also has a history cholecystectomy and has trouble with diarrhea intermittently. She currently is having trouble with diarrhea. She doesn't recall having checked it in the past. She doesn't have much money to buy extra food. She just usually eats what they serve here. She is going to [place] soon and needs an order for a wheelchair so that she can use one there. She denies other problems. Allergies: Vancomycin, Azithromycin, Clindamycin, Meclofenamate sodium, and Penicillins Code Status: FULL CODE Pulse 92 Wt (!) 145.1 kg (319 lb 12.8 oz) SpO2 95% BMI 48.63 kg/m?? Physical Exam Vitals reviewed. Constitutional: General: She is not in acute distress. Appearance: She is morbidly obese. Cardiovascular: Rate and Rhythm: Normal rate and regular rhythm. Heart sounds: Normal heart sounds. No murmur heard. Pulmonary: Effort: Pulmonary effort is normal. No respiratory distress. Breath sounds: Normal breath sounds. No wheezing, rhonchi or rales. Neurological: General: No focal deficit present. Mental Status: She is alert and oriented to person, place, and time. Psychiatric: Mood and Affect: Mood normal. Behavior: Behavior normal. Thought Content: Thought content normal. Judgment: Judgment normal. Assessment/Plan Summary / Assessment / Plan 1. Mixed hyperlipidemia 2. Diarrhea, unspecified type 3. History of cholecystectomy 4. Bipolar 2 disorder, major depressive episode ([facility]) 5. Elevated ALT measurement 6. Morbid obesity with BMI of 40.0-44.9, adult ([facility]) We discussed her high cholesterol. Her triglycerides are concerning since they are over 500. She does not really eat a lot extra junk food but does eat was they serve here at the group home. It is likely due in part to her medications. She also had her gallbladder removed have intermittent diarrhea. Discussed risks and benefits of statins and other medications. Her ALT was elevated slightly. Wewill try Questran 4 g daily which can help lower lipids and may help with diarrhea from the cholecystectomy. Check CMP and TSH. Order written for her to use a wheelchair at [facility]. All medications reviewed and are medically necessary. ELECTRONICALLY SIGNED BY: Rinku Kennedy DO documented in this encounter Plan of Treatment Not on file documented as of this encounter Visit Diagnoses Diagnosis Mixed hyperlipidemia- Primary Diarrhea, unspecified type History of cholecystectomy Other acquired absence of organ Bipolar 2 disorder, major depressive episode ([facility]) Elevated ALT measurement Morbid obesity with BMI of 40.0-44.9, adult ([facility]) documented in this encounter Care Teams Delinquency Prevention Officer Relationship Specialty Start Date End Date Rinku Kennedy DO [address] [facility], [facility] [address] PCP - General Family Medicine 04/27/24 documented as of this encounter
--- OUTSIDE RECORDS SUMMARY | 2025-02-05 08:09 | XMS_ITS | Encounter Summary ---
Author Organization [facility] Address [facility] [place] [address] Care Team Providers Care Solution Designer Name Role Phone (Historcal), No Pcp Primary Care Provider César do Source Comments In the event this information is protected by the Federal Confidentiality of Alcohol and Drug AbusePatient Records regulations: The Federal rules restrict any use of the information to criminally investigate or prosecute any alcohol or drug abuse patient.[facility] Encounter Details Date Type Department Care Team (Late st Contact Info) Description 01/16/2024 Patient Msg Gastroenterology [address] [place] [address] Elda Oates, RN Appt reminder Social History Tobacco Use Types Packs/Day Years Used Date Smoking Tobacco: Never Smokeless Tobacco: Never Comments:2nd hand exposure Alcohol Use Standard Drinks/Week Comments Never 0 (1 standard drink = 0.6 oz pur e alcohol) [facility] Utilities Answer Date Recorded In the [...] place to sleep or slept in a nursing home (including now)? No 12/05/2023 Area Deprivation Index Answer Date Gonzales rded National Score (1-100), lower number is lower ri sk 89 11/01/2023 State Score (1-10), lower number is lower risk 8 11/01/2023 Data from: https://www.neighborhoodatlas.medicine.[facility].edu/. Last address used for calculation [address] [...] Description 06/19/2025 8:30 AM EST Office Visit [facility] TAWANDA ADAMS [address] [place] [address] [address] [facility] [address] [place] [address] EDS 06/19/2025 9:00 AM EST Office Visit VICKI ADAMS [address] [place] [address] Keara Hernandez MD [address] [place] [address] EDS documented as of this encounter Visit Diagnoses Not on filedocumented in this encounter Care Teams Solution Designer Relationship Specialty Start Date End Date (Historcal), No Pcp PCP - General 01/20/15 documented as of this encounter
--- OUTSIDE RECORDS SUMMARY | 2025-02-05 08:09 | XMS_ITS | Encounter Summary ---
Author Organization [facility] Address [address] [place] [address] Care Team Providers Care Regional Production Manager Name Role Phone (Historcal), No Pcp Primary Care Provider César do Source Comments In the event this information is protected by the Federal Confidentiality of Alcohol and Drug AbusePatient Records regulations: The Federal rules restrict any use of the information to criminally investigate or prosecute any alcohol or drug abuse patient.[facility] Encounter Details Date Type Department Care Team (Late st Contact Info) Description 05/14/2023 Abstract Colorectal Surgery [address] [phone] Emy Matson, Research Coordinator [facility] [place] [phone] Social History Tobacco Use Types Packs/Day Years Used Date Smoking Tobacco: Never Assessed Comments Unknown Sex and Gender Information Value Date Recorded Sex Assigned at Female 08/22/2024 10:44 AM EST Legal Sex Female 10:36 AM EDT Gender Identity Female 08/22/2024 10:44 AM EST Sexual Orientation Not on file documented as of this encounter Plan of Treatment Upcoming Encounters Date Type Department Care Team (Late st Contact Info) Description 06/19/2025 8:30 AM EST Office Visit [facility] TAWANDA ADAMS [address] [place] [phone] Shantell Vinson, [facility] [address] [place] [address] EDS 06/19/2025 9:00 AM EST Office Visit ASHANTI ADAMS [address] [place] [address] Keara Hernandez MD [address] [place], [place] [phone] EDS documented as of this encounter Visit Diagnoses Not on filedocumented in this encounter Care Teams Regional Production Manager Relationship Specialty Start Date End Date (Historcal), No Pcp PCP - General 01/20/15 documented as of this encounter
--- OUTSIDE RECORDS SUMMARY | 2025-02-05 08:09 | XMS_ITS | Encounter Summary ---
Author Organization [facility] Address [address] [place] [address] Care Team Providers Care Buyer Assistant Name Role Phone (Historcal), No Pcp Primary Care Provider César do Source Comments In the event this information is protected by the Federal Confidentiality of Alcohol and Drug AbusePatient Records regulations: The Federal rules restrict any use of the information to criminally investigate or prosecute any alcohol or drug abuse patient.[facility] Encounter Details Date Type Department Care Team (Late st Contact Info) Description 09/02/2024 Patient Msg Neurology [address] [phone] Provider, Wes [facility] Social History Tobacco Use Types Packs/Day Years Used Date Smoking Tobacco: Never Smokeless Tobacco: Never Comments:2nd hand exposure Alcohol Use Standard Drinks/Week Comments Never 0 (1 standard drink = 0.6 oz pur e alcohol) [facility] Utilities Answer Date Recorded In the [...] place to sleep or slept in a fpc (including now)? No 12/05/2023 Area Deprivation Index Answer Date Gonzales rded National Score (1-100), lower number is lower ri sk 89 11/01/2023 State Score (1-10), lower number is lower risk 8 11/01/2023 Data from: https://www.neighborhoodatlas.medicine.[facility].edu/. Last address used for calculation [address] [...] Description 06/19/2025 8:30 AM EST Office Visit [facility] TAWANDA ADAMS [address] [place] [address] Shantell Vinson [facility] [address] [place] [address] EDS 06/19/2025 9:00 AM EST Office Visit VICKI ADAMS [address] [place] [address] Keara Hernandez MD [address] [place] [address] EDS documented as of this encounter Visit Diagnoses Not on filedocumented in this encounter Care Teams Buyer Assistant Relationship Specialty Start Date End Date (Historcal), No Pcp PCP - General 01/20/15 documented as of this encounter
--- OUTSIDE RECORDS SUMMARY | 2025-02-05 08:09 | XMS_ITS | Encounter Summary ---
Author Organization [employer] Sys tem Address [id number] [address] [place] [address] Care Team Providers Care Financial Aid Name Role Phone Rinku Kennedy DO Primary Care Provider [phone] Encounter Details Date Type Department Care Team (Late st Contact Info) Description 02/12/2024 Orders Only [facility] Internal Medicine - Family Medicine [address] [place] [address] Ref Prov, [place] [address] Social History Tobacco Use Types Packs/Day Years [...] Procedure Name Priority Date/Time Associated Diagnosis Comments MULTIPLE LABS Routine 02/02/2024 8:13 AM EDT documented in this encounter Results * Multiple labs (02/02/2024 8:13 AM EDT) us Not In System Ref Prov WI IMAGING Final Res ult MANUALLY TRANSCRIBED RESULTS documented in this encounter Visit Diagnoses Not on filedocumented in this encounter Care Teams Financial Aid Relationship Specialty Start Date End Date Rinku Kennedy DO [address] [place] [address] PCP - General Family Medicine 04/27/24 documented as of this encounter
--- OUTSIDE RECORDS SUMMARY | 2025-02-05 08:09 | XMS_ITS | Encounter Summary ---
Author Organization [facility] Address [address] [place] [address] Care Team Providers Care Safety Assistant Name Role Phone (Historcal), No Pcp Primary Care Provider César do Source Comments In the event this information is protected by the Federal Confidentiality of Alcohol and Drug AbusePatient Records regulations: The Federal rules restrict any use of the information to criminally investigate or prosecute any alcohol or drug abuse patient.[facility] Encounter Details Date Type Department Care Team (Late st Contact Info) Description 12/02/2023 [place] [address] Provider, [facility] MRI Screening Questionnaire Completion Required Social History Tobacco Use Types Packs/Day Years Used Date Smoking Tobacco: Never Smokeless Tobacco: Never Comments:2nd hand exposure Alcohol Use Standard Drinks/Week Comments Never 0 (1 standard drink = 0.6 oz pur e alcohol) [facility] Utilities Answer Date Recorded In the past 12 months has [employer], gas, oil, or water [employer] threatened to shut off services in your [...] place to sleep or slept in a alf (including now)? No 12/05/2023 Area Deprivation Index Answer Date Gonzales rded National Score (1-100), lower number is lower ri sk 89 11/01/2023 State Score (1-10), lower number is lower risk 8 11/01/2023 Data from: https://www.neighborhoodatlas.medicine.[facility].edu/. Last address used for calculation [address] 11/01/2023 Comments Unknown Sex and Gender Information [...] 8:30 AM EST Office Visit ASHANTI ADAMS [address] [place] [phone] Shantell Vinson LG [address] [place] [phone] EDS 06/19/2025 9:00 AM EST Office Visit ASHANTI ADAMS [address] [place] [address] Keara Hernandez MD [address] [place] [address] EDS documented as of this encounter Visit Diagnoses Not on filedocumented in this encounter Care Teams Safety Assistant Relationship Specialty Start Date End Date (Historcal), No Pcp PCP - General 01/20/15 documented as of this encounter
--- OUTSIDE RECORDS SUMMARY | 2025-02-05 08:09 | XMS_ITS | Encounter Summary ---
Author Organization [employer] s tem Address [id number] [address] [place] [address] Care Team Providers Care Guide Excursion Name Role Phone Rinku Kennedy DO Primary Care Provider [phone] Encounter Details Date Type Department Care Team (Late st Contact Info) Description 05/02/2023 [facility]phone [facility] [address] [place] [phone] Rinku Kennedy DO [address], [facility] [place] [place] [address] Social History Tobacco Use Types Packs/Day Years [...] on filedocumented in this encounter Care Teams Guide Excursion Relationship Specialty Start Date End Date Rinku Kennedy DO [address], [facility] [place] [place] [address] PCP - General Family Medicine 04/27/24 documented as of this encounter
--- OUTSIDE RECORDS SUMMARY | 2025-02-05 08:09 | XMS_ITS | Encounter Summary ---
Author Organization [facility] Address [address] [place] [address] Care Team Providers Care Caustic Cresylate Shift Superintendent Name Role Phone Rinku Kennedy MD Primary Care Provider [phone] Encounter Details Date Type Department Care Team (Late st Contact Info) Description 01/06/2023 Abstract [facility] [address] [place] [phone] Morales Hernandez, DPM [address] [place], [place] [phone] Social History Tobacco Use Types Packs/Day Years Used Date Smoking Tobacco: Never Tobacco Cessation:Counseling Given: Not Answered Alcohol Use Standard Drinks/Week Comments Never 0 (1 standard drink = 0.6 oz pure alcohol) Caffeine intake: 1-2 cups per day Comments Unknown Sex and Gender Information Value Date Recorded Sex Assigned at Not on file Legal Sex Female 7:25 PM EDT Gender Identity Not on file Sexual Orientation Not on file documented as of this encounter Plan of Treatment Not on file documented as of this encounter Visit Diagnoses Not on filedocumented in this encounter Care Teams Caustic Cresylate Shift Superintendent Relationship Specialty Start Date End Date Rinku Kennedy MD PCP - General Family Medicine 01/01/23 documented as of this encounter
--- OUTSIDE RECORDS SUMMARY | 2025-02-05 08:09 | XMS_ITS | Encounter Summary ---
Author Organization [facility] Address [address] [place] [address] Care Team Providers Care Rail Car Painter/Sandblaster Name Role Phone (Historcal), No Pcp Primary Care Provider César do Source Comments In the event this information is protected by the Federal Confidentiality of Alcohol and Drug AbusePatient Records regulations: The Federal rules restrict any use of the information to criminally investigate or prosecute any alcohol or drug abuse patient.[facility] Encounter Details Date Type Department Care Team (Late st Contact Info) Description 08/07/2023 Abstract Colorectal Surgery [address] [phone] Emy Matson, Research Coordinator [address] [place] [address] Social History Tobacco Use Types Packs/Day [...] lower risk 8 06/15/2023 Data from: https://www.neigh borhoodatlas.medicine.[facility].edu/. Last address used for calculation Geovany keating [...] 8:30 AM EST Office Visit VICKI ADAMS [address] [place] [phone] Shantell Vinson, DEBI [address] [phone] EDS 06/19/2025 9:00 AM EST Office Visit VICKI ADAMS [address] [place] [address] Keara Hernandez MD [address] [place] [address] EDS documented as of this encounter Visit Diagnoses Not on filedocumented in this encounter Care Teams Rail Car Painter/Sandblaster Relationship Specialty Start Date End Date (Historcal), No Pcp PCP - General 01/20/15 documented as of this encounter
--- OUTSIDE RECORDS SUMMARY | 2025-02-05 08:09 | XMS_ITS | Encounter Summary ---
Author Organization [facility] [employer] [facility] tem Address [id number] [address] [place] [address] Care Team Providers Care Silverware Cleaner Name Role Phone Rinku Kennedy DO Primary Care Provider [phone] Encounter Details Date Type Department Care Team (Late st Contact Info) Description 09/19/2022 Orders Only [facility] Internal Medicine - Family Medicine [address] [place] [address] External, Scanning Provider Social History Tobacco Use [...] Date/Time Associated Diagnosis Comments ECG 12-LEAD Routine 09/19/2022 documented in this encounter Results * ECG 12 lead (09/19/2022) us Scanning Provider External ECG ORDERABLES Final Result MANUALLY TRANSCRIBED RESULTS documented in this encounter Visit Diagnoses Not on filedocumented in this encounter Care Teams Silverware Cleaner Relationship Specialty Start Date End Date Rinku Kennedy DO [address] [place] [address] PCP - General Family Medicine 04/27/24 documented as of this encounter
--- OUTSIDE RECORDS SUMMARY | 2025-02-05 08:09 | XMS_ITS | Encounter Summary ---
Author Organization [facility] Address [address] [place] [address] Care Team Providers Care Hat Trimmer Name Role Phone (Historcal), No Pcp Primary Care Provider César do Source Comments In the event this information is protected by the Federal Confidentiality of Alcohol and Drug AbusePatient Records regulations: The Federal rules restrict any use of the information to criminally investigate or prosecute any alcohol or drug abuse patient.[facility] Encounter Details Date Type Department Care Team (Late st Contact Info) Description 08/02/2023 Patient Msg Genetic Healthcare [address] [place] [address] Shantell Mosley, [place] [address] [place] [address] Genetic Test Results Social History Tobacco Use Types Packs/Day Years [...] lower risk 8 06/15/2023 Data from: https://www.neigh borhoodatlas.medicine.[place].edu/. Last address used for calculation Geovany keating [...] Description 06/19/2025 8:30 AM EST Office Visit [facility] TAWANDA ADAMS [address] [place] [phone] Shantell Vinson, DEBI [address] [phone] EDS 06/19/2025 9:00 AM EST Office Visit VICKI ADAMS [address] [place] [address] Keara Hernandez MD [address] [place] [address] EDS documented as of this encounter Visit Diagnoses Not on filedocumented in this encounter Care Teams Hat Trimmer Relationship Specialty Start Date End Date (Historcal), No Pcp PCP - General 01/20/15 documented as of this encounter
--- OUTSIDE RECORDS SUMMARY | 2025-02-05 08:09 | XMS_ITS | Encounter Summary ---
Author Organization [facility] Address [address] [place] [address] Care Team Providers Care Copy Technician Name Role Phone (Historcal), No Pcp Primary Care Provider César do Source Comments In the event this information is protected by the Federal Confidentiality of Alcohol and Drug AbusePatient Records regulations: The Federal rules restrict any use of the information to criminally investigate or prosecute any alcohol or drug abuse patient.[facility] Encounter Details Date Type Department Care Team (Late st Contact Info) Description 06/27/2023 Patient Msg Genetic Healthcare [address] [place] [phone] Provider, [facility] Genetics appointment Social History Tobacco Use Types Packs/Day Years Used Date Smoking Tobacco: Never Assessed PHQ-2 Answer Date Recorded PHQ-2 score 2 06/28/2023 Area Deprivation Index Answer Date Gonzales rded National Score (1-100), lower number is lower ri sk 89 06/15/2023 State Score (1-10), lower number is lower risk 8 06/15/2023 Data from: https://www.neigh borhoodatlas.medicine.[facility].edu/. Last address used for calculation Geovany rishabh [...] 8:30 AM EST Office Visit ASHANTI ADAMS [address] [place] [address] Shantell Vinson, DEBI [address] [place] [address] EDS 06/19/2025 9:00 AM EST Office Visit VICKI ADAMS [address] [place] [address] Keara Hernandez MD [address] [place] [address] EDS documented as of this encounter Visit Diagnoses Not on filedocumented in this encounter Care Teams Copy Technician Relationship Specialty Start Date End Date (Historcal), No Pcp PCP - General 01/20/15 documented as of this encounter
--- NOTE | 2025-02-05 08:32 | XR_ITS ---
The [address] [address] Patient Name: PAM VELAZQUEZ MRN: [id number] date: 1990 Sex: F Assigned Patient Location: ED.MAIN Current Patient Location: ED.MAIN Accession/Order Number: [id number] Exam Date: 02/05/2025 09:23 Report Date: 02/05/2025 09:26 At the request of: OJSE GREEN MD Procedure: XR chest 1V PORTABLE AP ERECT CHEST 0857 hours CLINICAL HISTORY: Chest pain on the right COMPARISON: None Evaluation is slightly limited by large body habitus. There is also shallow inspiration. The heart is borderline prominent. There is slight interstitial prominence. There is no focal consolidation, sizable effusion or pneumothorax. The bony structures are intact. XR/XR chest 1V IMPRESSION: SLIGHT LIMITED STUDY. BORDERLINE CARDIOMEGALY AND SLIGHT INTERSTITIAL CHANGE. CORRELATION IS RECOMMENDED TO ANY POSSIBILITY OF FAILURE OR VOLUME OVERLOAD. NO ADDITIONAL ACUTE FINDINGS. Impression dictated by: Joan Logan M.D. 02/05/2025 9:26 AM Dictation Location: [place] [address] Electronically authenticated by: [id number] Y Date: 02/05/2025 09:26
--- NOTE | 2025-02-05 08:32 | ECG_ITS ---
The [facility] Test Date: 2025-02-05 Pat Name: PAM VELAZQUEZ Department: Room: - Gender: Female Electrical Electronics Engineer: : 1990 Requested By: LEOLA AGUILERA Order Number: [id number] Reading MD: JESUS ALBERTO HORNER Measurements Intervals [place] Rate: 84 P: 44 ME: 186 QRS: 75 QRSD: 84 T: 54 QT: 360 QTc: 401 Interpretive Statements 1100 Sinus rhythm 4068 Nonspecific [place] abnormality 8102 Low QRS voltage in chest leads 9130 borderline ECG Compared to ECG 03/27/2024 14:49:03 Sinus tachycardia no longer present Electronically Signed On 02-10-2025 13:02:29 EDT by JESUS ALBERTO HORNER
--- NOTE | 2025-02-05 08:34 | ED.GENADUL1 ---
HPI HPI - General Adult General Chief complaint: Chest Pain Stated complaint: CHEST PAINS Time Seen by Provider: 02/05/25 08:05 Source: patient Mode of arrival: ambulance Limitations: no limitations History of Present Illness HPI narrative: 34-year-old female presents for chest pain. It started this morning when she was sitting in the dining room. It was on the left side of her chest and she felt like her heart was racing. She states is not racing anymore. No fever cough or back pain. Related Data Home Medications ?Medication ?Instructions ?Recorded ?Confirmed albuterol sulfate 2.5 mg/3 mL 2.5 mg inhalation Q6H PRN 02/05/25 02/05/25 (0.083 %) solution for nebulization shortness of breath or wheezing albuterol sulfate 90 mcg/actuation 2 puff inhalation Q4H PRN 02/05/25 02/05/25 aerosol inhaler shortness of breath or wheezing aripiprazole 15 mg tablet 15 mg PO DAILY 02/05/25 02/05/25 baclofen 10 mg tablet 10 mg PO Q8H PRN back spasms 02/05/25 02/05/25 celecoxib 100 mg capsule 100 mg PO Q12H 02/05/25 02/05/25 cholecalciferol (vitamin D3) 50 2,000 unit PO DAILY 02/05/25 02/05/25 mcg (2,000 unit) capsule cholestyramine (with sugar) 4 gram 1 ea PO DAILY 02/05/25 02/05/25 powder for susp in a packet clonidine HCl 0.2 mg tablet 0.2 mg PO BEDTIME 02/05/25 02/05/25 ferrous sulfate 325 mg (65 mg 325 mg PO DAILY 02/05/25 02/05/25 iron) tablet (Feosol) hydroxyzine HCl 25 mg tablet 25 mg PO BID 02/05/25 02/05/25 lidocaine 4 % topical patch 1 patch topical DAILY PRN pain 02/05/25 02/05/25 montelukast 10 mg tablet 10 mg PO BEDTIME 02/05/25 02/05/25 ondansetron HCl 4 mg tablet 4 mg PO Q4H PRN nausea and vomiting 02/05/25 02/05/25 pantoprazole 40 mg tablet,delayed 40 mg PO Q12H 02/05/25 02/05/25 release rimegepant 75 mg disintegrating 75 mg PO DAILY PRN migraine 02/05/25 02/05/25 tablet (Nurtec ODT) headache sirolimus 1 mg tablet 1 mg PO DAILY 02/05/25 02/05/25 trazodone 100 mg tablet 100 mg PO BEDTIME 02/05/25 02/05/25 venlafaxine 75 mg capsule,extended 225 mg PO DAILY 02/05/25 02/05/25 release 24 hr Allergies Allergy/AdvReac Type Severity Reaction Status Date / Time amoxicillin Allergy rash Verified 02/05/25 08:07 clindamycin Allergy Rash Verified 02/05/25 08:07 Penicillins Allergy Rash Verified 02/05/25 08:07 vancomycin Allergy Rash Verified 02/05/25 08:07 Opioid HPI Opioid Management Most Recent Opioid Data: Last Pain Scale 6 Today, 08:17 Ur Phencyclidine Scrn, (NEGATIVE) Negative 03/27/24, 14:40 Review of Systems ROS Narrative A ten point review of systems is negative except as noted above. PFSH PFSH Social History Little interest or pleasure in doing things: not at all Feeling down, depressed, or hopeless: not at all Exam Narrative Exam Narrative: Nurses note and vital signs reviewed and patient is not hypoxic. General: The patient appears well and in no apparent distress. Patient is resting comfortably on cart. Skin: Warm, dry, no pallor noted. There is no rash noted. Head: Normocephalic, atraumatic Eye: Normal conjunctiva, no drainage Ears, Nose, Mouth, and Throat: oral mucosa is moist. Nares patent. Cardiovascular: Regular Rate and Rhythm; chest wall has tenderness on the left side which seems to reproduce her symptoms. Respiratory: Patient is in no distress, no accessory muscle use, lungs are clear to auscultation, no wheezing, rales or rhonchi Back: non-tender GI: Obese soft and nontender Musculoskeletal: The patient has no evidence of calf tenderness, no pitting edema, symmetrical pulses noted bilaterally Neurological: A&O, normal speech Psychiatric: Cooperative Constitutional Vital Signs, click to edit/add: Last Vital Signs Temp 98.9 F 02/05/25 08:03 Pulse 86 02/05/25 08:03 Resp 16 02/05/25 08:03 BP 133/85 02/05/25 08:03 Pulse Ox 99 02/05/25 08:20 O2 Del Method Room Air 02/05/25 08:20 Course Vital Signs Vital signs: Vital Signs Temperature 98.9 F 02/05/25 08:03 Pulse Rate 86 02/05/25 08:03 Respiratory Rate 16 02/05/25 08:03 Blood Pressure 133/85 02/05/25 08:03 Pulse Oximetry 95 02/05/25 08:03 Oxygen Delivery Method Room Air 02/05/25 08:03 Temperature 98.9 F 02/05/25 08:03 Pulse Rate 86 02/05/25 08:03 Respiratory Rate 16 02/05/25 08:03 Blood Pressure 133/85 02/05/25 08:03 Pulse Oximetry 99 02/05/25 08:20 Oxygen Delivery Method Room Air 02/05/25 08:20 Medical Decision Making MDM Narrative Medical decision making narrative: Her workup is negative. Her pain is reproducible and my clinical impression is that she has chest wall pain. Treatment diagnosis and follow-up were discussed with the patient. Differential Diagnosis Differential Diagnosis: Chest wall pain, NC, pneumothorax, PE Lab Data Lab results reviewed: Yes I reviewed the patient's lab results Labs: Lab Results 02/05/25 Range/Units 08:09 WBC 10.9 (4.0-11.0) 10^3/uL RBC 5.20 (4.20-5.40) 10^6/uL Hgb 13.8 (12.0-16.0) g/dL Hct 43.3 (36.0-48.0) % MCV 83.3 (81.0-99.0) fL MCH 26.5 L (26.7-34.0) pg MCHC 31.9 (29.9-35.2) g/dL RDW 14.9 (11.0-15.0) % Plt Count 304 (150-450) 10^3/uL MPV 9.5 (9.5-13.5) fL Neut % (Auto) 72.7 (43.0-75.0) % Lymph % (Auto) 16.5 L (20.5-60.0) % [place] % (Auto) 5.9 (1.7-12.0) % Eos % (Auto) 3.9 (0.9-7.0) % Baso % (Auto) 0.5 (0.2-2.0) % Neut # (Auto) 7.9 H (1.4-6.5) 10^3/uL Lymph # (Auto) 1.8 (1.2-3.8) 10^3/uL [place] # (Auto) 0.6 (0.3-0.8) 10^3/uL Eos # (Auto) 0.4 (0.0-0.7) 10^3/uL Baso # (Auto) 0.1 (0.0-0.1) 10^3/uL Abs Immat Gran (auto) 0.05 H (0.00-0.03) 10^3/uL Imm/Tot Granulo (auto) 0.5 (0.0-0.5) % D-Dimer 0.38 (<=0.59) mg/L FEU Sodium 142 (136-145) mmol/L Potassium 4.0 (3.5-5.1) mmol/L Chloride 103 (98-107) mmol/L Carbon Dioxide 29.9 (21.0-32.0) mmol/L Anion Gap 13.1 BUN 13.0 (7.0-18.0) mg/dL Creatinine 0.69 (0.55-1.02) mg/dL Est GFR ( Amer) >60 (>=60 mL/min/1.73m^2) Est GFR (Non-Af Amer) >60 (>=60 mL/min/1.73m^2) BUN/Creatinine Ratio 18.8 Glucose 113 H (74-106) mg/dL Calcium 9.2 (8.5-10.1) mg/dL Troponin I High Sens <4.0 L (4.0-51.3) pg/mL Imaging Data Chest x-ray: Radiologist's impression: ITS Impressions Chest X-Ray 02/05/25 08:32 IMPRESSION: SLIGHT LIMITED STUDY. BORDERLINE CARDIOMEGALY AND SLIGHT INTERSTITIAL CHANGE. CORRELATION IS RECOMMENDED TO ANY POSSIBILITY OF FAILURE OR VOLUME OVERLOAD. NO ADDITIONAL ACUTE FINDINGS. Impression dictated by: Joan Logan M.D. 02/05/2025 9:26 AM Dictation Location: [place] [address] Electronically authenticated by: [id number] Y Date: 02/05/2025 09:26 ECG Data Attestation: I personally reviewed and interpreted this ECG as follows: (EKG on my interpretation shows normal sinus rhythm with a rate of 84 no acute change) Discharge Plan Discharge Chief Complaint: Chest Pain Clinical Impression: Chest wall pain Patient Disposition: Home, Self-Care Time of Disposition Decision: 09:43 Condition: Good Mode of Transportation: Private Vehicle Prescriptions / Home Meds: No Action aripiprazole 15 mg tablet 15 mg PO DAILY albuterol sulfate 90 mcg/actuation HFA aerosol inhaler 2 puff INHALATION Q4H PRN (Reason: shortness of breath or wheezing) albuterol sulfate 2.5 mg /3 mL (0.083 %) solution for nebulization 2.5 mg inhalation Q6H PRN (Reason: shortness of breath or wheezing) baclofen 10 mg tablet 10 mg PO Q8H PRN (Reason: back spasms) celecoxib 100 mg capsule 100 mg PO Q12H clonidine HCl 0.2 mg tablet 0.2 mg PO BEDTIME cholecalciferol (vitamin D3) 50 mcg (2,000 unit) capsule 2,000 unit PO DAILY venlafaxine 75 mg capsule,extended release 24hr 225 mg PO DAILY ferrous sulfate [Feosol] 325 mg (65 mg iron) tablet 325 mg PO DAILY hydroxyzine HCl 25 mg tablet 25 mg PO BID Nurtec ODT 75 mg tablet,disintegrating 75 mg PO DAILY PRN (Reason: migraine headache) ondansetron HCl 4 mg tablet 4 mg PO Q4H PRN (Reason: nausea and vomiting) pantoprazole 40 mg tablet,delayed release (DR/EC) 40 mg PO Q12H cholestyramine (with sugar) 4 gram powder in packet 1 ea PO DAILY lidocaine 4 % adhesive patch,medicated 1 patch topical DAILY PRN (Reason: pain) montelukast 10 mg tablet 10 mg PO BEDTIME sirolimus 1 mg tablet 1 mg PO DAILY trazodone 100 mg tablet 100 mg PO BEDTIME Print Language: Samoan Instructions: Chest Wall Pain (ED) Referrals: LEOLA AGUILERA [Primary Care Provider, Family Practice] - 1 week
[2025-02-05 08:41] LABS: Hematocrit 43.3 % (36.0-48.0); Hemoglobin 13.8 g/dL (12.0-16.0); Immature Granulocytes Abs Auto 0.05 10^3/uL (0.00-0.03); Immature Granulocytes Pct Auto 0.5 % (0.0-0.5); Lymphocytes Absolute Auto 1.8 10^3/uL (1.2-3.8); Mean Corpuscular HGB Conc 31.9 g/dL (29.9-35.2); Mean Corpuscular Hemoglobin 26.5 pg (26.7-34.0); Mean Corpuscular Volume 83.3 fL (81.0-99.0); Platelet Count 304 10^3/uL (150-450); Red Blood Count 5.20 10^6/uL (4.20-5.40); White Blood Count 10.9 10^3/uL (4.0-11.0)
[2025-02-05 08:54] LABS: Anion Gap 13.1; Blood Urea Nitrogen 13.0 mg/dL (7.0-18.0); Carbon Dioxide 29.9 mmol/L (21.0-32.0); Chloride 103 mmol/L (98-107); Estimated GFR (African America >60 (>=60 mL/min/1.73m^2); Glucose 113 mg/dL (74-106); Potassium 4.0 mmol/L (3.5-5.1); Sodium 142 mmol/L (136-145)
[2025-02-05 08:55] LABS: Calcium 9.2 mg/dL (8.5-10.1); Estimated GFR (Non-African Ame >60 (>=60 mL/min/1.73m^2)
== END 2025-02-05 11:01 | disposition home or self-care (01) ==
PROVIDERS: Emergency Provider Emergency Medicine; PCP Family Medicine
DX: R07.89 Other chest pain (principal)
CPT/HCPCS: 36415; 71045; 80048; 84484; 85025; 85378; 93005; 99285